=== PATIENT | male | born 1965 | race African-American/Black ===

== ENCOUNTER 2024-11-29 15:09 | Inpatient (IN) | payer OTHER, SELFPAY ==
[2024-11-29] VITALS (22 sets, daily range): BP systolic 135–182; BP diastolic 86–123; PULSE 47–74; RESP 16–28; TEMP 36.6; O2SAT 95–100; BMI 31.1
--- NOTE | ~2024-11-29 | XR_ITS ---
EXAMINATION: XR chest 2V Exam Date/Time: 11/29/2024 15:35 CDT HISTORY: back pain, sob Comparison: None. RESULT: Lines, tubes, and devices: None. Lungs and pleura: Clear. Cardiomediastinal silhouette: Stable. Other: No acute upper abdominal finding. Mild height loss at T8-T10 IMPRESSION: No acute cardiopulmonary process. Acute versus chronic mild height loss at T8-T10. Reviewed, dictated and finalized at location K.
--- NOTE | ~2024-11-29 | CT_ITS ---
History: Back pain PROCEDURE: CT thoracic spine without intravenous contrast. COMPARISON: Reference is made to CT examination of the chest dated 11/29/2024 as well as plain film kenyon luation of the chest performed the same day TECHNIQUE: Multiple contiguous axial images of the thoracic spine were performed without the administration of i ntravenous contrast. DLP: 1055 mGy-cm FINDINGS: Preservation of the normal curvature of the thoracic spine is identified. There are bridging endplate osteophytes at multiple levels in the thoracic spine (T5-T9), consistent with diffuse idiopathic skeletal hyperostosis (DISH). Diffuse mild anterior wedge compression of the T5, T6, T7, T8 and T9 vertebral bodies are identified. This type of diffuse vertebral body height loss can be seen with osteoporosis/decreased bone density as well as sequelae of diffuse idiopathic skeletal hyperostosis. Both T4 and T11 demonstrate normal vertebral body height. At the level of C7/T1: A central disc protrusion is identified with mass effect on the spinal canal a nd bilateral neural foramen. The anterior to posterior canal measures 9.3 mm in anterior to posterior dimension at this level. At the level of T1/T2: No significant disc protrusion is identified. At the level of T2/T3: No significant disc protrusion is identified. At the level of T3/T4: No significant disc protrusion is identified. At the level of T4/T5: No significant disc protrusion is identified. At the level of T5/T6: No significant disc protrusion is identified. At the level of T6/T7: No significant disc protrusion is identified. At the level of T7/T8: No significant disc protrusion is identified. At the level of T8/T9: No significant disc protrusion is identified. At the level of T9/T10: No significant disc protrusion is identified. At the level of T11/T12: No significant disc protrusion is identified. At the level of T12/L1: No significant disc protrusion is identified. At the level of T10/T11, is a large right renal cyst measuring 5.3 x 5 cm, which in rare cases may ca use back pain. Right-sided pleural thickening with adjacent compressive atelectasis is noted within the right lung b ase (anterior and lateral to the vertebral body of T8), an interval change from CT examination dated 11/29/2024. No additional soft tissue abnormality is noted. Impression: Central disc protrusion at the level of C7/T1, narrowing the spinal canal. Diffuse idiopathic skeletal hyperostosis at the levels of T5-T9. Mild anterior wedge compression of the T5-T9 vertebral bodies (grade 1) which may be seen with osteop orosis. Large right renal cyst anterior to the level of T10/T11. Right-sided pleural thickening with adjacent compressive atelectasis within the right lung base, an i nterval change from previous examination performed 11/29/2024 Reviewed, dictated and finalized at location A. Impression: Central disc protrusion at the level of C7/T1, narrowing the spinal canal. Diffuse idiopathic skeletal hyperostosis at the levels of T5-T9. Mild anterior wedge compression of the T5-T9 vertebral bodies (grade 1) which m ay be seen with osteoporosis. Large right renal cyst anterior to the level of T10/T11. Right-sided pleural thickening with adjacent compressive atelectasis within the right lung base, an interval change from previous examination performed 11/30/19 25
--- NOTE | ~2024-11-29 | MR_ITS ---
MRI of the thoracic spine Clinical History: Pain Technique: Axial T2-weighted and gradient images, and sagittal T1-weighted, T2-weighted, and STIR nina ges were acquired. Following intravenous administration of 20 cc MultiHance gadolinium, T1-weighted fat-sat imaging was performed in the axial and sagittal planes. Findings: There is no acute fracture or subluxation of the thoracic spine. Probable minimal chronic l oss of height at T7, T8, and T9. There is mild degenerative disc narrowing from T7 through T10. No ac jude bone marrow signal reality seen. No significant disc bulge or herniation seen at any thoracic level. No spinal canal stenosis or cord compression identified. Neural foramina are preserved throughout the thoracic spine. No abnormal signal seen in the spinal cord. Paravertebral soft tissues are unremarkable. No abnormal postcontrast enhancement identified. Impression: Minimal degenerative change in the mid thoracic spine. Probable minimal chronic loss of height at T7, T8, and T9. Reviewed, dictated and finalized at [facility]. Impression: Minimal degenerative change in the mid thoracic spine. Probable minimal chronic loss of height at T7, T8, and T9.
--- NOTE | ~2024-11-29 | CT_ITS ---
EXAMINATION: CTA chest PE protocol DATE: 11/29/2024 18:35 INDICATION: Pleuritic chest pain evaluate for PE TECHNIQUE: Computed tomography angiography (CTA) of the chest was performed with 100 mL Omnipaque-350 intravenous contrast timed to evaluate the pulmonary arteries. Coronal maximum intensity projection 3D-reconstructions were created by the technologist. The dose-length product (DLP) was 512.21 mGy-cm. Automated exposure control and iterative reconstruction technique were employed. COMPARISON: X-ray chest, same date. FINDINGS: Lung parenchyma and airways: Clear. Pleura: Unremarkable. Thoracic inlet, axillae and chest wall: Unremarkable. Thoracic aorta: No significant dilation. No dissection. Mediastinum: Normal. Heart and pericardium: Normal. Coronary artery calcifications: Absent. Upper abdomen: No significant finding. Bones: No acute osseous finding. Chronic appearing mild height loss at T7-T9. Pulmonary arteries: Study quality: Adequate. No pulmonary emboli detected. IMPRESSION: No CT evidence of acute pulmonary embolus. No acute process detected in the chest. Reviewed, dictated and finalized at location K.
--- NOTE | ~2024-11-29 | MR_ITS ---
MRI of the lumbar spine Clinical History: Pain Technique: Axial T2-weighted images, and sagittal T1-weighted, T2-weighted, and T2 fat-sat images wer e acquired. Following intravenous administration of 20 cc MultiHance gadolinium, T1-weighted fat-sat imaging was performed in the axial and sagittal planes. Findings: There is no fracture or subluxation of the lumbar spine. Vertebral bodies maintain normal h eight and line. No bone marrow signal abnormality seen. At L1-L2 and L2-L3 and L3-L4, there is no significant disc bulge or herniation. There are minimal fac et joint degenerative changes at these levels. No spinal canal stenosis or neural foraminal narrowing at these levels. At L4-L5, there is minimal disc bulge and mild facet arthropathy. No central canal stenosis or neural foraminal narrowing. At L5-S1, there is minimal disc bulge with advanced facet arthropathy. No spinal canal stenosis. Ther e is moderate to advanced bilateral neural foraminal narrowing. Paravertebral soft tissues are unremarkable. No abnormal postcontrast enhancement identified. Impression: Moderate to advanced bilateral neural foramina narrowing at L5-S1. Reviewed, dictated and finalized at location . Impression: Moderate to advanced bilateral neural foramina narrowing at L5-S1.
--- NOTE | ~2024-11-29 | MR_ITS ---
MRI of the cervical spine Clinical History: Pain Technique: Axial T2-weighted and gradient images, and sagittal T1-weighted, T2-weighted, and STIR nina ges were acquired. Following intravenous administration of 20 cc MultiHance gadolinium, T1-weighted f at-sat imaging was performed in the axial and sagittal planes. Findings: There is no fracture or subluxation of the cervical spine. Vertebral bodies maintain normal height and alignment. No bone marrow signal abnormality seen. No significant disc bulge or herniation seen at any cervical level. No spinal canal stenosis, cord co mpression, or neural foraminal narrowing and cervical spine. At C7-T1, there is diffuse disc osteophy te complex, especially at the right foraminal region with bilateral neural foraminal narrowing at thi s level. No abnormal signal seen in the spinal cord. Paravertebral soft tissues are unremarkable. No abnormal postcontrast enhancement seen. Impression: Moderate to advanced degenerative spondylitic changes at C7-T1, with extensive disc osteophyte comple x and bilateral neural foraminal narrowing. Renal cervical spine is essentially unremarkable. Reviewed, dictated and finalized at [facility]. Impression: Moderate to advanced degenerative spondylitic changes at C7-T1, with extensive disc osteophyte complex and bilateral neural foraminal narrowing. Renal cervical spine is essentially unremarkable.
--- OUTSIDE RECORDS SUMMARY | 2024-11-29 15:11 | XMS_ITS | Clinical Summary ---
Author Organization [facility] Address [address] [place] [address] Care Team Providers Care Preventive Medicine Specialist Name Role Phone Theodore Ott Primary Care Provider [phone] Source Comments [facility],non-owned Affiliates and Associated Physician Practices is amultiple site organization consisting of ambulatory clinics and hospital sitesin [place], [place], [place] and [place]. This disclosure is being madepursuant to the Care Everywhere program and may not contain all information available regarding this patient. 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 Gender Identity Not on file Sexual Orientation Not on file Plan of Treatment Health Maintenance Due Date Last Done Comments COLOGUARD (AGES 45-75) - COL ON CA SCREENING 1967 COLON MONITORING 1967 COLONOSCOPY - COLON CA SCREENING 1967 CT COLONOGRAPHY - COLON CA SCREENING 1967 Colorectal Cancer Screening 1967 FIT - COLON CA SCREENING 1967 FLEX SIG - COLON CA SCREENING 1967 LIPID TESTING 1967 HIV SCREENING 12/03/1982 HEPATITIS C SCREENING 11/29/1985 DTAP/TDAP/TD VACCINES (1 - Tdap) 12/03/1986 HEPATITIS B VACCINE (1 of 3 - 19+ 3-dose series) 12/03/1986 PNEUMOCOCCAL VACCINE 50+ (1 of 1 - PCV) 12/03/2017 ZOSTER VACCINE (1 of 2) 12/03/2017 COVID-19 VACCINE (1 - 2024-2 5 season) 2024 DEPRESSION SCREENING 05/28/2024 INFLUENZA VACCINE Completed 02/12/2024 HIB VACCINE Aged Out No longer eligi ble based on patient's age to complete this topic HPV VACCINE Aged Out No longer eligi ble based on patient's age to complete this topic MENINGOCOCCAL (Group B) VACC INE SHARED DECISION-MAKING Aged Out No longer eligibl e based on patient's age to complete this topic MENINGOCOCCAL GROUPS A/C/Y/W VACCINE Aged Out No longer eligible b ased on patient's age to complete this topic Insurance [employer] [facility] [employer] Care Teams Preventive Medicine Specialist Relationship Specialty Start Date End Date Theodore Ott [address] [place] [phone] PCP - General Family Medicine 02/21/24
--- OUTSIDE RECORDS SUMMARY | 2024-11-29 15:11 | XMS_ITS | Referral Summary ---
Author Organization [facility] Address [address] [place] [id number] Care Team Providers Care Helminthology Teacher Name Role Phone Theodore Ott MD Primary Care Provider [phone] Allergies No known active allergies Medications amLODIPine (NORVASC) 10 mg tablet Take 10 mg by mouth daily 0 Active atorvastatin (LIPITOR) 10 mg tablet Take 10 mg by mouth daily 0 Active metFORMIN XR (GLUCOPHAGE XR) 500 mg 24 hr tablet Take 500 mg by mouth daily 0 Active sildenafiL (VIAGRA) 100 mg tablet daily Active naproxen sodium 220 mg capsule Take by mouth A ctive mozqp-7-zwk-epa -dpa-fish oil 1,050-1,200 mg capsule 1 capsule Active cyanocobalamin (Vitamin B-12) 1,000 mcg tabletIndicatio ns:Prevention of Vitamin B12 Deficiency Take 1,000 mcg by mouth daily Active atorvastatin (LIPITOR) 40 mg tablet Take 40 mg by mouth daily 2 Active triamcinolone (KENALOG) 0.5 % cream APPLY CREAM TOPICALLY TWICE DAILY ON BILATERAL POSTERIOR WRISTS 2 Active montelukast (SINGULAIR) 10 mg tablet Take 10 mg by mouth daily for 30 days 2 Active losartan (COZAAR) 100 mg tablet Take 100 mg by mouth daily for 90 days 2 Active cetirizine (ZyrTEC) 10 mg tablet Take 10 mg by mouth daily for 30 days Active hydrALAZINE (APRESOLINE) 50 mg tablet hydralazine 50 mg tablet Active Active Problems Problem Noted Date Diagnosed Date Obstructive sleep apnea 11/22/2021 Insufficient sleep syndrome 09/19/2021 Hypersomnia 09/19/2021 Essential hypertension 09/19/2021 BMI 30.0-30.9,adult 09/19/2021 Psychophysiological insomnia 09/19/2021 Anxiety 09/19/2021 Nonsmoker 09/19/2021 Trigger ring finger of left hand 06/20/2019 Immunizations Immunization Administration Dates Next Due Tdap 01/16/2024 Social History Tobacco Use Types Packs/Day Years Used Date Smoking Tobacco: Never Smokeless Tobacco: Never Alcohol Use Standard Drinks/Week Comments Yes 0 (1 standard drink = 0.6 oz pur e alcohol) social AUDIT-C Answer Date Recorded Q1: How often do you have a drink containing alc ohol? Monthly or less 09/19/2021 Q2: How many drinks containi ng alcohol do you have on a typical day when you are drinking? 1 or 2 09/19/2021 Frequency of Binge Drinking Not on file 08/27 Personal Safety Answer Date Recorded Have you ever been in or are you currently in a harmful physical or emotional relationship or is someone making you feel afraid or unsafe? 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 Gender Identity Not on file Sexual Orientation Not on file Last Filed Vital Signs Vital Sign Reading Time Taken Comments Blood Pressure 138/80 01/16/2024 4:00 PM CDT Pulse 56 01/16/2024 4:00 PM CDT Temperature 36.9 C (98.4 F) 01/16/2024 1:07 PM CDT Respiratory Rate 17 01/16/2024 4:00 PM CDT Oxygen Saturation 97% 01/16/2024 4:00 PM CDT Inhaled Oxygen Concentration - - Weight 95.3 kg (210 lb) 01/16/2024 1:07 PM CDT Height 180.3 cm (5' 11) 01/16/2024 1:07 PM CDT Body Mass Index 29.29 01/16/2024 1:07 PM CDT Plan of Treatment Not on file Insurance ANTHEM ACCESS CHOICE ANTHEM ACCESS CHOICE [address] [address] EMPLOYERS [employer] ACCESS CHOICE Care Teams Helminthology Teacher Relationship Specialty Start Date End Date Theodore Ott MD [address] [place] [phone] PCP - General Family Medicine 06/03/19
--- OUTSIDE RECORDS SUMMARY | 2024-11-29 15:11 | XMS_ITS | Clinical Summary ---
Author Organization [facility] Address [address] [place] [phone] Care Team Providers Care Carbide Grinder Name Role Phone Theodore Ott MD Primary Care Provider [phone] Allergies No known active allergies Medications amLODIPine [...] mg capsule Take by mouth A ctive mlipk-4-lsm-epa -dpa-fish oil 1,050-1,200 mg capsule 1 capsule [...] Immunization Administration Dates Next Due Tdap 01/16/2024 Medical History Medical History Date Comments Diabetes mellitus (HCC) Hypercholesteremia Hypertension Social History Tobacco Use Types Packs/Day Years [...] on file 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 Gender Identity Not on file Sexual Orientation Not on file Obstetrics History Last Filed Vital Signs Vital Sign Reading [...] 01/16/2024 1:07 PM CDT Plan of Treatment Health Maintenance Due Date Last Done Comments Colon Cancer Screening-Colonoscopy 1967 Depression Screening 1967 Hepatitis C Screening 1967 Prostate Cancer Screening-PSA 1967 Hepatitis B Screening 12/03/1985 Regular Well Visit/Exam 18-64 12/03/1985 Zoster Vaccine (1 of 2) 12/03/2017 Covid-19 Vaccine (3 - 2023-2 5 season) 2024 10/01/2020, 09/07/2020 Influenza Vaccine (#1) 2025 DTaP/Tdap/Td Vaccine (2 - Td or Tdap) 01/15/2034 01/16/2024 Pneumococcal vaccine <65 Aged Out No longer eligible based on patient's age to complete this topic Insurance [employer] [facility] ACCESS CHOICE Care Teams Carbide Grinder Relationship Specialty Start Date End Date Theodore Ott MD [address] [place] [phone] PCP - General Family Medicine 06/03/19
--- OUTSIDE RECORDS SUMMARY | 2024-11-29 15:11 | XMS_ITS | Data Portability ---
[facility] [address] [place] [address] Care Team Providers Care Pattern Clerk Name Role Phone THEODORE OTT Primary Care Provider Assessment No assessment recorded. Plan of Treatment Reminders Order Date Submit Date Provider Last Modified By Organization Details Last Modified Time Details Appointments ANY 15 2024 03:30P Sirena Ott MD Not available Not available Not available Lab glucos e, finger stick, blood 2024 025 In-Office Order, Internal Use Only DO Not Attach Compendium DO Not Attach Compendium, Do Not Delete/merge, [id number] 08/12/2024 15:31:13 glucos e, finger stick, blood 2023 024 In-Office Order, Internal Use Only DO Not Attach Compendium DO Not Attach Compendium, Do Not Delete/merge, [id number] 05/13/2024 18:03:41 HbA1c (hemog lobin A1c), blood 2023 024 In-Office Order, Internal Use Only DO Not Attach Compendium DO Not Attach Compendium, Do Not Delete/merge, [id number] 05/13/2024 18:03:41 glucos e, finger stick, blood 2023 024 In-Office Order, Internal Use Only DO Not Attach Compendium DO Not Attach Compendium, Do Not Delete/merge, [id number] 02/12/2024 17:23:09 HbA1c (hemog lobin A1c), blood 2023 024 In-Office Order, Internal Use Only DO Not Attach Compendium DO Not Attach Compendium, Do Not Delete/merge, 02/12/2024 17:23:10 glucos e, finger stick, blood 2023 024 In-Office Order, Internal Use Only DO Not Attach Compendium DO Not Attach Compendium, Do Not Delete/merge, 01/14/2024 17:34:16 noninv asive colore ctal cancer DNA + occult blood screen ing, QL, stool 2023 024 [facility] (Cologuard Orders Only), [address], [address], [place], [address], 10/29/2023 17:54:00 glucos e, finger stick, blood 2023 024 In-Office Order, Internal Use Only DO Not Attach Compendium DO Not Attach Compendium, Do Not Delete/merge, 10/11/2023 16:56:32 HbA1c (hemog lobin A1c), blood 2023 024 In-Office Order, Internal Use Only DO Not Attach Compendium DO Not Attach Compendium, Do Not Delete/merge, 10/11/2023 16:56:31 CMP, serum or plasma 2023 024 [facility], [address] [place], [place] [address]kaden Moran, [address], [place], [address], 10/25/2023 01:41:14 lipid panel, serum 2023 024 [facility], [address] [place], [place] [address]kaden Moran, [address], [place], [address], 10/25/2023 01:41:13 unlist ed lab - TSH reflex to t4f 2023 024 [facility], [address] [facility], [address], [place], [address], 11/01/2023 09:45:32 CBC w/ auto diff 2023 024 [facility], [address] [facility], [address], [place], [address], 10/25/2023 01:41:15 vitami n D, 25-hyd violet, total, serum 2023 024 [facility], [address] [facility], [address], [place], [address], 10/25/2023 01:41:17 Referral podiat rist referr al 2023 024 [facility], [address], [place], [address], 11/23/2023 16:44:03 ophtha lmolog ist referr al 2023 024 [facility], [address], [place], [address], 09/19/2024 16:16:03 Procedures None record ed. Surgeries None record ed. Imaging None record ed. Medication Orders silden afil 100 mg tablet 2024 025 [facility], [address], [id number], 08/12/2024 15:41:34 losart an 100 mg tablet 2024 025 [facility], [address] [place], [address], 08/12/2024 15:31:23 terazo sin 5 mg capsul e 2024 025 [facility], [address] [place], [address], 08/12/2024 15:31:25 clobet asol 0.05 % shampo o 2023 024 [facility], [address] [place], [address], 05/13/2024 18:03:46 kendra ukast 10 mg tablet 2023 024 [facility], [address] [place] [address], [id number], 01/14/2024 17:34:23 cetiri zine 10 mg tablet 2023 024 [facility], [address] [place] [address], [id number], 01/14/2024 17:34:24 atorva statin 40 mg tablet 2023 024 [facility], [address] [place] [address], [id number], 01/14/2024 17:34:23 silden afil 100 mg tablet 2023 024 [facility], [facility], [address], [id number], 01/14/2024 17:41:33 Vitami n D2 1,250 mcg (50,00 0 unit) capsul e 2023 024 [facility], [address] [place] [address], [id number], 01/14/2024 17:37:51 seleni um sulfid e 2.5 % lotion 2023 024 [facility], [address] [place] [address], [id number], 01/14/2024 17:34:23 kendra ukast 10 mg tablet 2023 024 [facility], [address] [place] [address], [id number], 10/11/2023 16:56:36 cetiri zine 10 mg tablet 2023 024 [facility], [address] [place] [address], [address], 10/11/2023 16:56:41 atorva statin 40 mg tablet 2023 024 [facility], [address] [place] [address], [id number], 10/11/2023 16:56:37 seleni um sulfid e 2.5 % lotion 2023 024 [facility], [address] [place] [address], [id number], 10/11/2023 16:56:39 metfor min ER 500 mg tablet ,exten ded releas e 24 hr 2023 024 [facility], [address] [place] [address], [id number], 10/11/2023 16:56:39 losart an 100 mg tablet 2023 024 [facility], [address] [place] [address], [address], 10/11/2023 16:56:39 hydral azine 100 mg tablet 2023 024 [facility], [address] [place] [address], [id number], 10/11/2023 16:56:37 silden afil 100 mg tablet 2023 024 [facility], [address] [place] [address], [id number], 10/11/2023 17:05:46 Patient TargetsNo targets recorded. Patient Instructions Encounter Date Encounter Id Patient Instructions Last Modified By Organization Details Last Modified Time 10/11/2023 [id number] allergies: care instructions Not available 10/11/2023 16:56:28 managing your allergies: care instructions Not available 10/11/2023 16:56:28 A healthy lifestyle: care instructions Not available 10/11/2023 16:56:28 high cholesterol : care instructions Not available 10/11/2023 16:56:28 seborrheic dermatitis: care instructions Not available 10/11/2023 16:56:28 type 2 diabetes: care instructions Not available 10/11/2023 16:56:28 learning about type 2 diabetes Not available 10/11/2023 16:56:28 learning about high blood pressure Not available 10/11/2023 16:56:28 How To Lower Blood Pressure Not available 10/11/2023 16:56:28 Erection Problems: Care Instructions Not available 10/11/2023 16:56:28 01/14/2024 [id number] allergies: care instructions Not available 01/14/2024 17:34:13 high cholesterol : care instructions Not available 01/14/2024 17:34:13 A healthy lifestyle: care instructions Not available 01/14/2024 17:34:13 seborrheic dermatitis: care instructions Not available 01/14/2024 17:34:13 learning about high blood pressure Not available 01/14/2024 17:34:13 type 2 diabetes: care instructions Not available 01/14/2024 17:34:13 02/12/2024 [id number] influenza (flu) vaccine: care instructions Not available 02/12/2024 17:23:08 A healthy lifestyle: care instructions Not available 02/12/2024 17:23:08 learning about high blood pressure Not available 02/12/2024 17:23:08 type 2 diabetes: care instructions Not available 02/12/2024 17:23:08 high cholesterol : care instructions Not available 02/12/2024 17:23:08 05/13/2024 [id number] A healthy lifestyle: care instructions Not available 05/13/2024 18:03:41 seborrheic dermatitis: care instructions Not available 05/13/2024 18:03:41 learning about high blood pressure Not available 05/13/2024 18:03:41 type 2 diabetes: care instructions Not available 05/13/2024 18:03:41 high cholesterol : care instructions Not available 05/13/2024 18:03:41 08/12/2024 [id number] advance care planning: care instructions Not available 08/12/2024 15:31:13 preventing falls : care instructions Not available 08/12/2024 15:31:13 Quitting Tobacco : Care Instructions Not available 08/12/2024 15:31:13 Medicare Wellnes s Preventive Checklist Not available 08/12/2024 15:31:13 eating healthy foods: care instructions Not available 08/12/2024 15:31:13 AD8 Dementia Screening Interview Not available 08/12/2024 15:31:13 high cholesterol : care instructions Not available 08/12/2024 15:31:14 A healthy lifestyle: care instructions Not available 08/12/2024 15:31:13 seborrheic dermatitis: care instructions Not available 08/12/2024 15:31:13 learning about high blood pressure Not available 08/12/2024 15:31:14 type 2 diabetes: care instructions Not available 08/12/2024 15:31:13 Reason for Referral Mobile Ui Developer Referral for Type 2 diabetes mellitus without complication Referring Physician: Theodore [facility], Encounter Date: 10/11/2023 Insulation Sprayer Referral for Type 2 diabetes mellitus without complication Referring Physician: Theodore Ott [facility], Encounter Date: 10/11/2023 Results Created Date Observation Date Name Description Value Unit Range Abnormal Flag Note LastModifiedBy Organization Detail LastModifiedTime 10/11/19 24 10/11/2023 HbA1c (hemo globi n A1c), blood HbA1c 6.4 Not Available In-Office Order Internal Use Only DO Not Attach Compendium DO Not Attach Compendium, Do Not Delete/merge, [id number] 10/11/2023 16:56:07 10/11/19 24 10/11/2023 glucheather neff se k, blood Blood Glucose: mg/dl 135 Not Available In-Off ice Order Internal Use Only DO Not Attach Compendium DO Not Attach Compendium, Do Not Delete/merge, [id number] 10/11/2023 16:32:45 10/19/19 24 10/19/2023 COLOG UARD cologuard result reportable NEGATI VE negati ve normal NEGAT MELIDA TEST RESUL T. A negat melida Colog uard resul t indic ates a low likel ihood that a color ectal cance r (CRC) or advan matt adeno ma (sahra omato us polyp s with more advan matt pre-m align ant featu res) is prese nt. The [facility] e that a perso n with a negat melida Colog uard test has a color ectal cance r is less than 1 in 1500 (nega tive predi ctive value >99.9 %) or has an advan matt adeno ma is less than 5.3% (nega tive predi ctive value 94.7% ). These data are based on a prosp ectiv e cross -sect ional study of 10,00 0 indiv idual s at [place] ge risk for color ectal cance r who were scree flaco with both Colog uard and colon oscop y. (Ghassan Gutierrez et al, N Engl J Med 2014; 370(1 4):12 86-12 97) The clifford l value (refe rence range ) for this assay is negat melida. COLOG UARD RE-SC REENI NG RECOM MENDA TION: Perio dic color ectal cance r scree camila is an impor tant part of preve ntive healt hcare for asymp tomat ic indiv idual s at [facility] risk for color ectal cance r. Follo wing a negat melida Colog uard resul t, the Ameri can Cance r Socie ty and U.S. Multi -Soci ety Task Force scree camila guide lines recom mend a Colog uard re-sc hernandez estes inter laurie of 3 years . Refer ences : Ameri can Cance r Socie ty Guide line for Color ectal Cance r Scree camila: https ://ww w.can cer.o rg/ca ncer/ colon -rect al-ca ncer/ detec tion- diagn osis- stagi ng/ac s-rec ommen datio ns.ht ml.; Abdi MCCLOUD, Vlad balderas CR, Farhad IsabelK, Color ectal Cance r Scree camila: Recom menda tions for Physi cians and Patie nts from the U.S. Multi -Soci ety Task Force on Color ectal Cance r Scree camila , Am Chalo bonilla y 2017; 112:1 016-1 030. TEST DESCR IPTIO N: Gravity site algor ithmi c be sis of stool DNA-b iovishal stevens with hemog lobin immun oassa y. Quant itati ve value s of indiv idual bioma rkers are not repor table and are not assoc iated with indiv idual bioma rker resul t refer ence range s. Colog uard is inten ded for color ectal cance r scree camila of adult s of eithe r sex, 45 years or older , who are at [facility] for color ectal cance r (CRC) . Colog uard has been appro praful for use by the U.S. FDA. The perfo rmanc e of Colog uard was estab lishe d in a cross secti onal study of [facility] adult s aged 50-84 . Colog uard perfo rmanc e in patie nts ages 45 to 49 years was estim ated by sub-g roup be sis of near- age group s. Colon oscop ies perfo rmed for a posit melida resul t may find as the most clini angelo signi fican t lesio n: color ectal cance r [4.0% ], advan matt adeno ma (incl uding sessi le mina farheen polyp s great er than or equal to 1cm diame ter) [20%] or non- advan matt adeno ma [31%] ; or no color ectal neopl john [45%] . These estim ates are deriv ed from a prosp ectiv e cross -sect ional tae jensen study of 0 indiv idual s at [facility] risk for color ectal cance r who were scree flaco with both Colog uard and colon oscop y. (Ghassan Shook al, N Engl J Med 2014; 370(1 4):12 86-12 97.) Colog uard may produ ce a false negat melida or false posit melida resul t (no color ectal cance r or preca ncero us polyp prese nt at colon oscop y follo w up). A negat melida Colog uard test resul t does not guara ntee the absen ce of CRC or advan matt adeno ma (pre- cance r). The curre nt Colog uard scree camila inter laurie is every 3 years . (Amer ican Cance r Socie ty and U.S. Multi -Soci ety Task Force ). Colog uard perfo rmanc e data in a 0 patie nt pivot al study using colon oscop y as the refer ence metho d can be acces sed [facility] locat ion: www.e xactl abs.c om/re sulhilaria . Addit ional descr iptio n of the Colog uard test proce ss, warni ngs and preca ution s can be found at www.c sarahogu indra.c om. Not Available [facility] (Cologuard Orders Only) [address], [place], [address], 10/29/2023 17:54:00 10/24/1910/25/2023 LIPID PANEL , STAND INDRA cholesterol, total 118 mg/dL <200 normal Not Available [facility] [address], [place], [address], 10/25/2023 01:59:53 10/24/1910/25/2023 LIPID PANEL , STAND INDRA HDL cholesterol 38 mg/dL > or = 40 low Not Available [facility] [address] [address] [place], [address], 10/25/2023 01:59:53 10/24/1910/25/2023 LIPID PANEL , STAND INDRA triglyceride s 97 mg/dL <150 normal Not Available [facility] [address], [address], 10/25/2023 01:59:53 10/24/19 24 10/25/2023 LIPID PANEL , STAND INDRA LDL-choleste rol 62 mg/dL _(lauren c) normal Refer ence range : <100 Manny able range <100 mg/dL for prima ry preve ntion ; <70 mg/dL for patie nts with CHD or diabe tic patie nts with > or = 2 CHD risk facto rs. LDL-C is now calcu lated using the Odalys raza-Hop kins calcu david n, which is a valid ated novel metho d provi ding josephine r accur acy than the Fried dori equat ion in the estim ation of LDL-C . Odalys raza SS et al. MARICRUZ. 2013; 310(1 9): 2061- 2068 (http ://ed ucati on.Qu Bg [employer]. com/f aq/FA Q164) Not Available [facility] [address] [address] [place], [address], 10/25/2023 01:59:53 10/24/19 24 10/25/2023 LIPID PANEL , STAND INDRA chol/HDLC ratio 3.1 (calc ) <5.0 normal Not Available [facility] [address], [address], 10/25/2023 01:59:53 10/24/19 24 10/25/2023 LIPID PANEL , STAND INDRA non HDL cholesterol 80 mg/dL _(lauren c) <130 normal For patie nts with diabe lakisha plus 1 major ASCVD risk facto r, treat ing to a non-H DL-C goal of <100 mg/dL (LDL- C of <70 mg/dL ) is cristina estrellao n. Not Available [address], [address], 10/25/2023 01:59:53 10/24/19 24 10/25/2023 COMPR EHENS MELIDA METAB OLIC PANEL glucose 97 mg/dL 65-139 normal Non-f astin g refer ence inter laurie Not Available [address], [address], 10/25/2023 01:59:54 10/24/19 24 10/25/2023 COMPR EHENS MELIDA METAB OLIC PANEL urea nitrogen (BUN) 12 mg/dL 7-25 normal Not Available [address], [address], 10/25/2023 01:59:54 10/24/19 24 10/25/2023 COMPR EHENS MELIDA METAB OLIC PANEL creatinine 0.96 mg/dL 0.70-1 .30 normal Not Available [address], [address], 10/25/2023 01:59:54 10/24/19 24 10/25/2023 COMPR EHENS MELIDA METAB OLIC PANEL eGFR 93 mL/mi n/1.7 3m2 > or = 60 normal Not Available [address], [address], 10/25/2023 01:59:54 10/24/19 24 10/25/2023 COMPR EHENS MELIDA METAB OLIC PANEL BUN/creatini ne ratio SEE NOTE: (calc ) 6-22 Not Repor farheen: BUN and Creat inine are withi n refer ence range . Not Available [address], [address], 10/25/2023 01:59:54 10/24/19 24 10/25/2023 COMPR EHENS MELIDA METAB OLIC PANEL sodium 139 mmol/ L 135-14 6 normal Not Available [address], [address], 10/25/2023 01:59:54 10/24/19 24 10/25/2023 COMPR EHENS MELIDA METAB OLIC PANEL potassium 4.0 mmol/ L 3.5-5. 3 normal Not Available [address], [address], 10/25/2023 01:59:54 10/24/19 24 10/25/2023 COMPR EHENS MELIDA METAB OLIC PANEL chloride 104 mmol/ L 98-110 normal Not Available [address], [address], 10/25/2023 01:59:54 10/24/19 24 10/25/2023 COMPR EHENS MELIDA METAB OLIC PANEL carbon dioxide 29 mmol/ L 20-32 normal Not Available [address], [address], 10/25/2023 01:59:54 10/24/19 24 10/25/2023 COMPR EHENS MELIDA METAB OLIC PANEL calcium 8.9 mg/dL 8.6-10 .3 normal Not Available [address], [address], 10/25/2023 01:59:54 10/24/19 24 10/25/2023 COMPR EHENS MELIDA METAB OLIC PANEL protein, total 7.0 g/dL 6.1-8. 1 normal Not Available [address], [address], 10/25/2023 01:59:54 10/24/19 24 10/25/2023 COMPR EHENS MELIDA METAB OLIC PANEL albumin 4.2 g/dL 3.6-5. 1 normal Not Available [address] [place], [address], 10/25/2023 01:59:54 10/24/19 24 10/25/2023 COMPR EHENS MELIDA METAB OLIC PANEL globulin 2.8 g/dL_ (calc ) 1.9-3. 7 normal Not Available [address], [address], 10/25/2023 01:59:54 10/24/19 24 10/25/2023 COMPR EHENS MELIDA METAB OLIC PANEL albumin/glob ulin ratio 1.5 (calc ) 1.0-2. 5 normal Not Available [address], [address], 10/25/2023 01:59:54 10/24/19 24 10/25/2023 COMPR EHENS MELIDA METAB OLIC PANEL bilirubin, total 0.7 mg/dL 0.2-1. 2 normal Not Available [address], [address], 10/25/2023 01:59:54 10/24/19 24 10/25/2023 COMPR EHENS MELIDA METAB OLIC PANEL alkaline phosphatase 63 U/L 35-144 normal Not Available [address], [address], 10/25/2023 01:59:54 10/24/19 24 10/25/2023 COMPR EHENS MELIDA METAB OLIC PANEL AST 18 U/L 10-35 normal Not Available [address], [address], 10/25/2023 01:59:54 10/24/19 24 10/25/2023 COMPR EHENS MELIDA METAB OLIC PANEL ALT 17 U/L 9-46 normal Not Available [address], [address], 10/25/2023 01:59:54 10/24/19 24 10/25/2023 CBC (INCL UDES DIFF/ PLT) white blood cell count 4.9 thous and/u L 3.8-10 .8 normal Not Available [address], [address], 10/25/2023 01:41:15 10/24/19 24 10/25/2023 CBC (INCL UDES DIFF/ PLT) red blood cell count 4.46 krystin on/uL 4.20-5 .80 normal Not Available [address], [address], 10/25/2023 01:41:15 10/24/19 24 10/25/2023 CBC (INCL UDES DIFF/ PLT) hemoglobin 13.7 g/dL 13.2-1 7.1 normal Not Available [address], [address], 10/25/2023 01:41:15 10/24/19 24 10/25/2023 CBC (INCL UDES DIFF/ PLT) hematocrit 41.8 % 38.5-5 0.0 normal Not Available [address], [address], 10/25/2023 01:41:15 10/24/19 24 10/25/2023 CBC (INCL UDES DIFF/ PLT) MCV 93.7 fL 80.0-1 00.0 normal Not Available [address], [address], 10/25/2023 01:41:15 10/24/19 24 10/25/2023 CBC (INCL UDES DIFF/ PLT) MCH 30.7 pg 27.0-3 3.0 normal Not Available [address], [address], 10/25/2023 01:41:15 10/24/19 24 10/25/2023 CBC (INCL UDES DIFF/ PLT) MCHC 32.8 g/dL 32.0-3 6.0 normal Not Available [address], [address], 10/25/2023 01:41:15 10/24/19 24 10/25/2023 CBC (INCL UDES DIFF/ PLT) RDW 12.8 % 11.0-1 5.0 normal Not Available [address], [address], 10/25/2023 01:41:15 10/24/19 24 10/25/2023 CBC (INCL UDES DIFF/ PLT) platelet count 123 thous and/u L 140-40 0 low Not Available [address], [address], 10/25/2023 01:41:15 10/24/19 24 10/25/2023 CBC (INCL UDES DIFF/ PLT) MPV 12.8 fL 7.5-12 .5 high Not Available [address], [address], 10/25/2023 01:41:15 10/24/19 24 10/25/2023 CBC (INCL UDES DIFF/ PLT) absolute neutrophils 2548 cells /uL 1500-7 800 normal Not Available [address], [address], 10/25/2023 01:41:15 10/24/19 24 10/25/2023 CBC (INCL UDES DIFF/ PLT) absolute lymphocytes 1705 cells /uL 850-39 00 normal Not Available [address], [address], 10/25/2023 01:41:15 10/24/19 24 10/25/2023 CBC (INCL UDES DIFF/ PLT) absolute monocytes 608 cells /uL 200-95 0 normal Not Available [address], [address], 10/25/2023 01:41:15 10/24/19 24 10/25/2023 CBC (INCL UDES DIFF/ PLT) absolute eosinophils 20 cells /uL 15-500 normal Not Available [facility] [address], [address], 10/25/2023 01:41:15 10/24/19 24 10/25/2023 CBC (INCL UDES DIFF/ PLT) absolute basophils 20 cells /uL 0-200 normal Not Available [facility] [address], [address], 10/25/2023 01:41:15 10/24/19 24 10/25/2023 CBC (INCL UDES DIFF/ PLT) neutrophils 52 % normal Not Available [facility] [address], [address], 10/25/2023 01:41:15 10/24/19 24 10/25/2023 CBC (INCL UDES DIFF/ PLT) lymphocytes 34.8 % normal Not Available [facility] [address], [address], 10/25/2023 01:41:15 10/24/19 24 10/25/2023 CBC (INCL UDES DIFF/ PLT) monocytes 12.4 % normal Not Available [facility] [address], [address], 10/25/2023 01:41:15 10/24/19 24 10/25/2023 CBC (INCL UDES DIFF/ PLT) eosinophils 0.4 % normal Not Available [facility] [address], [address], 10/25/2023 01:41:15 10/24/19 24 10/25/2023 CBC (INCL UDES DIFF/ PLT) basophils 0.4 % normal Not Available [facility] [address], [address], 10/25/2023 01:41:15 10/24/19 24 10/25/2023 TSH W/REF GIOVANY TO FT4 TSH w/reflex to FT4 2.39 mIU/L 0.40-4 .50 normal Not Available [facility] [address] [place], [address], 10/25/2023 08:08:08 10/24/19 24 10/25/2023 VITAM IN D,25- OH,TO BREANA,I A vitamin D,25-oh,tota l,ia 25 NG/mL 30-100 low Vitam in D Statu s 25-OH Vitam in D: Defic iency : <20 ng/mL Insuf ficie ncy: 20 - 29 ng/mL Optim al: > or = 30 ng/mL For 25-OH Vitam in D testi ng on patie nts on D2-mcconnell pplem entat ion and patie nts for whom quant itati on of D2 and D3 fract ions is requi red, the [facility](TM ) 25-OH VIT D, (D2,D 3), LC/MS /MS is recom mery d: order code 22679 (db ents >2yrs ). See Note 1 Note 1 For addit ional infor mauricio wong e refer to http: //pratibha bishop ics.c om/fa q/FAQ 199 (This link is being provi ded for infor cedrick sarah/ educaby coombs purpo ses only. ) Not Available [facility] [address] [place], [address], 10/25/2023 08:08:10 01/14/20 24 01/14/2024 gluco se, finge rstic k, blood Blood Glucose: mg/dl 121 Not Available In-Off ice Order Internal Use Only DO Not Attach Compendium DO Not Attach Compendium, Do Not Delete/merge, [id number] 01/14/2024 16:54:38 02/12/20 24 02/12/2024 HbA1c (hemo globi n A1c), blood HbA1c 6.5 Not Available In-Office Order Internal Use Only DO Not Attach Compendium DO Not Attach Compendium, Do Not Delete/merge, [id number] 02/12/2024 17:02:57 02/12/20 24 02/12/2024 gluco se, finge rstic k, blood Blood Glucose: mg/dl 97 Not Available In-Off ice Order Internal Use Only DO Not Attach Compendium DO Not Attach Compendium, Do Not Delete/merge, [id number] 02/12/2024 17:02:45 05/13/20 24 05/13/2024 HbA1c (hemo globi n A1c), blood HbA1c 6.5 Not Available In-Office Order Internal Use Only DO Not Attach Compendium DO Not Attach Compendium, Do Not Delete/merge, [id number] 05/13/2024 16:58:55 05/13/20 24 05/13/2024 gluco se, finge rstic k, blood Blood Glucose: mg/dl 151 Not Available In-Off ice Order Internal Use Only DO Not Attach Compendium DO Not Attach Compendium, Do Not Delete/merge, [facility] 05/13/2024 15:59:31 08/13/19 25 08/12/2024 gluco se, finge rstic k, blood Blood Glucose: mg/dl 172 Not Available In-Off ice Order Internal Use Only DO Not Attach Compendium DO Not Attach Compendium, Do Not Delete/merge, [facility] 08/12/2024 15:05:49 Result Notes None recorded. Problems Name Problem SNOMED Code Status Onset Date Resolution Date Notes Provider Name and Address Organization Details Recorded Time Essential hypertension 28453121 Active 2017 FELIPE Chang - [facility] 8 10:31:16 Impotence Active 2017 FELIPE Chang - [facility] 8 10:31:24 Type 2 diabetes mellitus without complication 031302287 Active 2021 ANA Dewey [place] - [facility] 2 14:02:59 Problem Notes None recorded. Medical Equipment None Reported. Allergies Allergen ID Allergen Name Allergen Category Reaction Reaction Severity Criticality Documentation Date Start Date Code Code System Note Provider Name and Address Organization Details Recorded Time [id number] amlodipin e medicatio n angioedem a moderate Not available 01/14/2024 67348 RxNorm Theodore Ott MD Attn: Hillary collins,[address] [facility], [place], [address], [facility] [place] [facility] - [facility] 17:30:26 Medications Name Sig Start Date Stop Date Status Note LastModified by Organization Details LastModified Time terazosin 5 mg capsule TAKE 1 CAPSULE BY MOUTH ONCE DAILY active Not Available Not Available No t Available atorvastatin 40 mg tablet Take 1 tablet every day by oral route for 90 days. 2023 active Not Available Not Available Not Avai lable triamcinolon e acetonide 0.5 % topical cream APPLY CREAM TOPICALLY TWICE DAILY ON BILATERAL POSTERIOR WRISTS active Not Available Not Available No t Available cetirizine 10 mg tablet TAKE 1 TABLET BY MOUTH ONCE DAILY active Not Available Not Available No t Available atorvastatin 10 mg tablet Take 1 tablet every day by oral route for 90 days. 2019 active Not Available Not Available Not Avai lable meloxicam 15 mg tablet active Not Available Not Available No t Available prednisone 20 mg tablet Take 60mg for three days, then 40mg for three days, then 20mg for three days. active Not Available Not Available No t Available acetaminophe n 300 mg-codeine 30 mg tablet active Not Available Not Available Not Available amlodipine 5 mg tablet Take 1 tablet every day by oral route for 90 days. active Not Available Not Available No t Available sildenafil 100 mg tablet TAKE 1 TABLET BY MOUTH 30-60 MINUTES PRIOR TO SEXUAL ACTIVITY. DO NOT TAKE MORE THAN 1 TABLET IN ANY 24-HOUR PERIOD. 2024 active Not Available Not Available Not Avai lable oxycodone-ac etaminophen 5 mg-325 mg tablet TAKE 1 TABLET BY MOUTH EVERY 4 TO 6 HOURS active Not Available Not Available No t Available amoxicillin 875 mg tablet Take 1 tablet every 12 hours by oral route as directed for 10 days. active Not Available Not Available No t Available amlodipine 10 mg tablet Take 1 tablet every day by oral route for 90 days. 2019 active Not Available Not Available Not Avai lable cephalexin 500 mg capsule TAKE 1 CAPSULE BY MOUTH 4 TIMES DAILY FOR 5 DAYS active Not Available Not Available N ot Available hydralazine 100 mg tablet Take 1 tablet twice a day by oral route for 90 days. 2023 active Not Available Not Available Not Avai lable montelukast 10 mg tablet TAKE 1 TABLET BY MOUTH ONCE DAILY active Not Available Not Available No t Available hydralazine 50 mg tablet Take 1 tablet twice a day by oral route for 30 days. active Not Available Not Available No t Available ergocalcifer ol (vitamin D2) 1,250 mcg (50,000 unit) capsule TAKE 1 CAPSULE BY MOUTH ONCE A WEEK active Not Available Not Available No t Available losartan 100 mg tablet TAKE 1 TABLET BY MOUTH ONCE DAILY active Not Available Not Available No t Available fluticasone propionate 50 mcg/actuatio n nasal spray,suspen minnie Tijeras 1 spray every day by intranasal route as directed. active Not Available Not Available No t Available metformin ER 500 mg tablet,exten ded release 24 hr Take 1 tablet by mouth once daily for 90 days 2023 active Not Available Not Available Not Avai lable tadalafil 5 mg tablet TAKE 2 TABLETS BY MOUTH ONCE DAILY active Not Available Not Available No t Available tadalafil 20 mg tablet TAKE 1 TABLET BY MOUTH 30-60 MINUTES PRIOR TO SEXUAL ACTIVITY. DO NOT TAKE MORE THAN 1 TABLET IN ANY 24-HOUR PERIOD. active Not Available Not Available No t Available clobetasol 0.05 % shampoo APPLY A THIN LAYER BY TOPICAL ROUTE ONCE DAILY TO DRY SCALP LEAVE IN PLACE 15 MIN. THEN LATHER AND RINSE. active Not Available Not Available No t Available Accu-Chek Valerie Plus test strips Take 1 strip by miscell. route in the morning for 90 days. 2019 active Not Available Not Available Not Avai lable selenium sulfide 2.5 % lotion APPLY TO WET SCALP BY TOPICAL ROUTE ONCE WEEKLY WORK INTO A FULL LATHER, LEAVE ON SCALP FOR 2-3 MINUTES, RINSE THOROUGHLY, AND THEN PAT DRY 2023 active Not Available Not Available Not Avai lable COVID-19 test specimen collection DIRECTED active Not Available Not Availab le Not Available Vitals Date Recorded Heart rate Systolic And Diastolic Provider Name and Address Organization Details Last Updated DateTime 06/02/2024 58 /min 143/93 mm[Hg] Not Available Esvyda! 0 06/02/2024 09:59:13 Date Recorded Heart rate Heart rate Systolic And Diastolic Systolic And Diastolic Provider Name and Address Organization Details Last Updated DateTime 06/22/2024 64 /min 68 /min 153/91 mm[Hg] 128/89 mm[Hg] Not Available Sarah! 06/22/2024 07:59:21 Date Recorded Body height Body mass index (BMI) Body weight Oxygen saturation Oxygen saturation in Arterial blood by Pulse oximetry Heart rate Respiratory rate Body temperature Systolic And Diastolic Provider Name and Address Organization Details Last Updated DateTime 5 177.8 cm 32.6 kg/m2 283454. 47 g 97 % 97 % 84 /min 18 /min 97.4 [degF] 151/90 mm[Hg] Silvia Johnston MA [facility] 5 15:03:12 Date Recorded Body height Body mass index (BMI) Body weight Oxygen saturation Oxygen saturation in Arterial blood by Pulse oximetry Heart rate Respiratory rate Body temperature Systolic And Diastolic Provider Name and Address Organization Details Last Updated DateTime 4 177.8 cm 39.6 kg/m2 556369. 89 g 93 % 93 % 67 /min 18 /min 98.6 [degF] 157/83 mm[Hg] Silvia Johnston MA [facility] 4 16:46:07 Date Recorded Body height Body mass index (BMI) Body weight Oxygen saturation Oxygen saturation in Arterial blood by Pulse oximetry Heart rate Respiratory rate Body temperature Systolic And Diastolic Provider Name and Address Organization Details Last Updated DateTime 4 177.8 cm 31.7 kg/m2 216888. 91 g 95 % 95 % 58 /min 18 /min 98.4 [degF] 162/111 mm[Hg] Silvia Johnston MA [facility] 4 16:52:34 Date Recorded Body height Body mass index (BMI) Body weight Oxygen saturation Oxygen saturation in Arterial blood by Pulse oximetry Heart rate Respiratory rate Body temperature Systolic And Diastolic Provider Name and Address Organization Details Last Updated DateTime 4 177.8 cm 32 kg/m2 923270. 1 g 97 % 97 % 54 /min 18 /min 98 [degF] 161/93 mm[Hg] Silvia Johnston MA [facility] 4 16:59:27 Date Recorded Heart rate Heart rate Systolic And Diastolic Systolic And Diastolic Provider Name and Address Organization Details Last Updated DateTime 02/16/2024 66 /min 61 /min 132/83 mm[Hg] 135/82 mm[Hg] Not Available Esvyda! 05/13/2024 17:20:15 Date Recorded Heart rate Systolic And Diastolic Provider Name and Address Organization Details Last Updated DateTime 02/18/2024 87 /min 148/111 mm[Hg] Not Available Esvyda! 05/13/2024 17:20:15 Date Recorded Heart rate Heart rate Systolic And Diastolic Systolic And Diastolic Provider Name and Address Organization Details Last Updated DateTime 02/19/2024 68 /min 63 /min 154/96 mm[Hg] 155/92 mm[Hg] Not Available Esvyda! 05/13/2024 17:20:14 Date Recorded Heart rate Heart rate Systolic And Diastolic Systolic And Diastolic Provider Name and Address Organization Details Last Updated DateTime 02/20/2024 57 /min 57 /min 160/93 mm[Hg] 156/98 mm[Hg] Not Available Esvyda! 05/13/2024 17:20:15 Date Recorded Heart rate Heart rate Systolic And Diastolic Systolic And Diastolic Provider Name and Address Organization Details Last Updated DateTime 02/21/2024 58 /min 58 /min 152/95 mm[Hg] 157/95 mm[Hg] Not Available Esvyda! 05/13/2024 17:20:16 Date Recorded Heart rate Systolic And Diastolic Provider Name and Address Organization Details Last Updated DateTime 02/25/2024 62 /min 168/92 mm[Hg] Not Available Esvyda! 1 07/14/2023 17:20:16 Date Recorded Heart rate Systolic And Diastolic Provider Name and Address Organization Details Last Updated DateTime 03/06/2024 69 /min 155/97 mm[Hg] Not Available Esvyda! 1 07/14/2023 17:20:17 Date Recorded Heart rate Systolic And Diastolic Provider Name and Address Organization Details Last Updated DateTime 03/31/2024 75 /min 156/97 mm[Hg] Not Available Esvyda! 1 07/14/2023 17:20:16 Date Recorded Heart rate Systolic And Diastolic Provider Name and Address Organization Details Last Updated DateTime 04/01/2024 63 /min 151/95 mm[Hg] Not Available Esvyda! 1 07/14/2023 17:20:18 Date Recorded Heart rate Systolic And Diastolic Provider Name and Address Organization Details Last Updated DateTime 04/02/2024 62 /min 151/94 mm[Hg] Not Available Esvyda! 1 07/14/2023 17:20:18 Date Recorded Heart rate Systolic And Diastolic Provider Name and Address Organization Details Last Updated DateTime 04/03/2024 64 /min 146/91 mm[Hg] Not Available Esvyda! 1 07/14/2023 17:20:19 Date Recorded Heart rate Systolic And Diastolic Provider Name and Address Organization Details Last Updated DateTime 04/04/2024 58 /min 150/92 mm[Hg] Not Available Esvyda! 1 07/14/2023 17:20:19 Date Recorded Heart rate Systolic And Diastolic Provider Name and Address Organization Details Last Updated DateTime 04/05/2024 58 /min 149/94 mm[Hg] Not Available Esvyda! 1 07/14/2023 17:20:19 Date Recorded Heart rate Systolic And Diastolic Provider Name and Address Organization Details Last Updated DateTime 04/07/2024 63 /min 157/92 mm[Hg] Not Available Esvyda! 1 07/14/2023 17:20:19 Date Recorded Heart rate Heart rate Systolic And Diastolic Systolic And Diastolic Provider Name and Address Organization Details Last Updated DateTime 04/08/2024 58 /min 59 /min 156/91 mm[Hg] 168/100 mm[Hg] Not Available Esvyda! 05/13/2024 17:20:20 Date Recorded Heart rate Heart rate Systolic And Diastolic Systolic And Diastolic Provider Name and Address Organization Details Last Updated DateTime 04/09/2024 61 /min 59 /min 136/82 mm[Hg] 147/87 mm[Hg] Not Available Esvyda! 05/13/2024 17:20:21 Date Recorded Heart rate Heart rate Systolic And Diastolic Systolic And Diastolic Provider Name and Address Organization Details Last Updated DateTime 04/10/2024 56 /min 55 /min 143/86 mm[Hg] 154/89 mm[Hg] Not Available Esvyda! 05/13/2024 17:20:21 Date Recorded Heart rate Heart rate Systolic And Diastolic Systolic And Diastolic Provider Name and Address Organization Details Last Updated DateTime 04/16/2024 55 /min 60 /min 158/88 mm[Hg] 146/99 mm[Hg] Not Available Esvyda! 05/13/2024 17:20:21 Date Recorded Body height Body mass index (BMI) Body weight Oxygen saturation Oxygen saturation in Arterial blood by Pulse oximetry Heart rate Respiratory rate Body temperature Systolic And Diastolic Provider Name and Address Organization Details Last Updated DateTime 4 177.8 cm 32.3 kg/m2 519499. 28 g 97 % 97 % 81 /min 18 /min 98.1 [degF] 153/93 mm[Hg] Silvia Johnston MA [facility] 4 15:58:36 Date Recorded Heart rate Heart rate Heart rate Heart rate Systolic And Diastolic Systolic And Diastolic Systolic And Diastolic Provider Name and Address Organization Details Last Updated DateTime 4 59 /min 54 /min 88 /min 57 /min 146/89 mm[Hg] 149/94 mm[Hg] 160/107 mm[Hg] Not Available Esvyda! 4 17:23:36 Date Recorded Heart rate Systolic And Diastolic Provider Name and Address Organization Details Last Updated DateTime 05/27/2024 66 /min 146/87 mm[Hg] Not Available Esvyda! 1 06:14:32 Social History Question Answer Notes LastModified by Organizat ion Details LastModified Time Tobacco Smoking Status [email or web address] 11:17:58 What Was The Date Of Your Most Recent Tobacco Screening? 08/12/2024 [email or web address] Information not available 08/12/2024 Has Tobacco Cessation Counseling Been Provided? No Information not available 01/02/2022 On What Date Was Tobacco Cessation Counseling Provided? 01/02/2022 Information not available 01/02/2022 Sex: Male Functional Status Question Answer Note LastModified by Organization D etails LastModified Time Do you or have you ever used any other forms of tobacco or nicotine? No Information not available 01/02/2022 Mental Status None recorded. Family History Nothing Reported. Medical History Condition Response Coronary Artery Disease N Other N High Blood Pressure N Atrial Fibrillation N Thyroid Problems N Kidney or Bladder Problems N GI Problems N Depression N COPD N Blood Clots N Skin Problems N Anemia N Heart Attack ([place]) N Diabetes N Anxiety Disorder N Muscle, Joint, or Bone Problems N Seizures/Epilepsy N Acid Reflux (GERD) N Cancer N Stroke N Asthma N Allergies N High Cholesterol N Hepatitis N Liver Disease N Headaches N Osteoporosis N Heart Failure N Immunizations Vaccine Type Date Status Note Provider Nam e and Address Organization Details Recorded Time Influenza, split virus, trivalent, PF 02/12/2024 completed Ching Crawford MA [place], [place] - [facility] 02/12/2024 17:31:59 Past Encounters Encounter ID Performer Location Encounter Start Date Encounter Closed Date Diagnosis/Indication Diagnosis SNOMED-CT Code Diagnosis ICD10 Code Diagnosis Note [id number] Theodore Ott MD [address] [address] 12/14/2016 10:44:44 12/14/2016 16:17:50 Adult health examination 073280348 Z00.00 labs and follow up... Obesity 543339029 E66.9 232... Impotence 986964304 N52. 9 refill and follow up... [id number] Theodore Ott MD [address] [address] 02/16/2017 11:40:43 02/19/2017 11:18:10 Essential hypertension 05996671 I10 start med and follow up... Adult [facility] th examination 003000319 Z00.00 labs and follow up... Impotence 569389067 N52. 9 refill and follow up... [id number] Theodore Ott MD [address] [address] 07/30/2017 10:24:35 08/17/2017 10:15:31 Adult health examination 551653910 Z00.00 labs and follow up... [id number] Theodore Ott MD [address] [address] 09/24/2017 10:28:44 09/25/2017 14:35:35 Essential hypertension 91914474 I10 increase med... consider ARB with concern for DM.. med and follow up... Hyperlipidemia 14665639 E78.5 meds and follow up... 225 totol with 157 LDL... Impotence 194922333 N52. 9 refill and follow up... Adult heal th examination 877500002 Z00.00 labs and follow up... A1C was 6.3 as of .. weight 465 [id number] Theodore Ott MD [place] [address] 01/18/2018 16:07:12 01/21/2018 08:53:42 Essential hypertension 12301424 I10 increase med... consider ARB with concern for DM.. med and follow up... Obesity 092136282 E66.9 235... Hyperlipidemia 56760544 E78.5 meds and follow up... 225 totol with 157 LDL... [id number] TANMAY Rojas [place] [address] 06/21/2018 17:52:13 06/25/2018 09:27:55 Fluid level behind tympanic membrane 599038850 H65.02 Upper resp iratory infection 38017070 J06.9 Resolving. ..still audibly congested. Ok to continue OTC cough medication [id number] Theodore Ott MD [place] [address] 07/19/2018 15:56:44 07/22/2018 08:35:33 Impotence 595456124 N52.9 refill and follow up... Essential hypertension 85950072 I10 increase med... consider ARB with concern for DM.. med and follow up... Hyperlipidemia 38655733 E78.5 meds and follow up... 225 totol with 157 LDL... [id number] Theodore Ott MD [place] [address] 09/18/2018 10:46:52 09/18/2018 12:25:43 Impotence 902359309 N52.9 refill and follow up... Essential hypertension 97614314 I10 increase med... consider ARB with concern for DM.. med and follow up... Hyperlipidemia 48927335 E78.5 meds and follow up... 225 totol with 157 LDL... Adult heal th examination 708603439 Z00.00 labs and follow up... A1C was 6.3 as of .. weight 754 [id number] Theodore Ott MD [place] [id number] 01/02/2019 12:03:35 01/03/2019 09:21:03 Essential hypertension 91025701 I10 increase med... consider ARB with concern for DM.. med and follow up... Impotence 322812274 N52. 9 refill and follow up... Hyperlipidemia 41271635 E78.5 meds and follow up... 225 total with 157 LDL... Adult heal th examination 614592767 Z00.00 labs and follow up... A1C was 6.3 as of ... Trigger fi nger of left hand [id number] 2810413 M65.30 x-rays Allergic rhinitis 570491 04 J30.9 meds [id number] Theodore Ott MD [address] [address] 04/04/2019 12:01:43 04/07/2019 08:49:44 Essential hypertension 89714363 I10 increase med... consider ARB with concern for DM.. med and follow up... Impotence 408716459 N52. 9 refill and follow up... Hyperlipidemia 74953644 E78.5 meds and follow up... 225 total with 157 LDL... Adult heal th examination 281540096 Z00.00 labs and follow up... A1C was 6.3 as of ... Trigger fi nger of left hand 3372628550 0638551 M65.30 x-rays Allergic rhinitis 802385 04 J30.9 meds Screening for malignant neoplasm of colon 508787003 Z12.11 refer Type 2 lan betes mellitus without complication 507132831 E11.9 start med and follow up... A1C 7.1 as of 04-04-2019 [id number] Theodore Ott MD [address] [address] 07/07/2019 10:27:23 07/09/2019 09:28:16 Essential hypertension 35171037 I10 increase med... consider ARB with concern for DM.. med and follow up... Type 2 lan betes mellitus without complication 293038282 E11.9 start med and follow up... A1C 6.7 as of ... Impotence 946225537 N52. 9 refill and follow up... Hyperlipidemia 79964128 E78.5 meds and follow up... 225 total with 157 LDL... Adult heal th examination 432914439 Z00.00 labs and follow up......co loguard in 2021... Trigger fi nger of left hand 7202231658 2163985 M65.[address] Luther Elliott injected and feeing better.... left ring finger sx resolved Allergic rhinitis 432172 04 J30.9 meds [id number] Theodore Ott MD [address] [address] 10/06/2019 10:57:57 10/07/2019 08:30:45 Essential hypertension 11482551 I10 increase med... consider ARB with concern for DM.. med and follow up... check out-pt ... Type 2 lan betes mellitus without complication 253670681 E11.9 start med and follow up... A1C 6.7 as of ... Impotence 950746204 N52. 9 refill and follow up... Hyperlipidemia 74434692 E78.5 meds and follow up... 225 total with 157 LDL... Adult heal th examination 788936291 Z00.00 labs and follow up......co loguard in 2021... Trigger fi nger of left hand [id number] 3850699 M65.[address] Luther Elliott injected and feeing better.... left ring finger sx resolved Allergic rhinitis 417498 04 J30.9 meds [id number] Theodore Ott MD [address] [address] 02/24/2020 14:40:06 02/25/2020 07:17:01 Essential hypertension 96666944 I10 stop amlodipine because of leg swelling.. . start losartan in 1 week.. .. check out-pt and see me in 1 month... Type 2 lan betes mellitus without complication 908592158 E11.9 start med and follow up... A1C 6.7 as of ... Impotence 325469401 N52. 9 refill and follow up... Hyperlipidemia 32415418 E78.5 meds and follow up... 225 total with 157 LDL... Adult heal th examination 810092991 Z00.00 labs and follow up......co loguard in 2021... Trigger fi nger of left hand [id number] 8126723 M65.[address] Luther Elliott injected and feeing better.... left ring finger sx resolved Allergic rhinitis 832349 04 J30.9 meds [id number] Theodore Ott MD [place] [id number] 11/25/2020 10:19:52 11/26/2020 20:21:19 Essential hypertension 18122241 I10 stop amlodipine because of leg swelling.. . start losartan in 1 week... Type 2 lan betes mellitus without complication 295102739 E11.9 start med and follow up... A1C 6.7 as of ... Impotence 540292248 N52. 9 refill and follow up... Hyperlipidemia 68777124 E78.5 meds and follow up... 225 total with 157 LDL... Adult heal th examination 133596951 Z00.00 labs and follow up......co loguard in 2021... Trigger fi nger of left hand [id number] 8502076 M65.[address] Luther Elliott injected and feeing better.... left ring finger sx resolved Allergic rhinitis 578757 04 J30.9 meds [id number] Theodore Ott MD [place] [id number] 08/04/2021 13:45:52 08/10/2021 11:11:08 Type 2 diabetes mellitus without complication 281248770 E11.9 doing well Sleep apnea 53932467 G47 .30 follow up Essential hypertension 76264224 I10 stop amlodipine because of leg swelling.. . start losartan in 1 week... Impotence 182852189 N52. 9 refill and follow up... Hyperlipidemia 65879865 E78.5 meds and follow up... 225 total with 157 LDL... Adult heal th examination 627977774 Z00.00 labs and follow up......co loguard in 2021... Trigger fi nger of left hand [id number] 7013608 M65.[address] Luther Elliott injected and feeing better.... left ring finger sx resolved Allergic rhinitis 162068 04 J30.9 meds Acute dermatitis 4082782 6 L30.9 good skin care... reduce nickel exposure.. .note at distributi on of watch on left hand... [id number] Theodore Ott MD [place] [address] 01/02/2022 14:44:31 01/04/2022 11:59:07 Type 2 diabetes mellitus without complication 210178489 E11.9 doing well Essential hypertension 57966817 I10 stop amlodipine because of leg swelling.. . add hydralazin e... Impotence 211374682 N52. 9 refill and follow up... Hyperlipidemia 76152802 E78.5 meds and follow up... 225 total with 157 LDL... Adult heal th examination 589437971 Z00.00 labs and follow up......co loguard in 2021... Trigger fi nger of left hand [id number] 0133237 M65.[address] Luther Elliott injected and feeling better.... left ring finger sx resolved Allergic rhinitis 835889 04 J30.9 meds [id number] Theodore Ott MD [place] [id number] 04/04/2022 13:56:34 04/05/2022 08:30:11 Type 2 diabetes mellitus without complication 560598099 E11.9 doing well... Essential hypertension 28658598 I10 stop amlodipine because of leg swelling.. . increase hydralazin e Impotence 296381491 N52. 9 refill and follow up... Hyperlipidemia 23869362 E78.5 meds and follow up... 225 total with 157 LDL... Adult heal th examination 607452491 Z00.00 labs and follow up......co loguard in 2021... Trigger fi nger of left hand [id number] 9994007 M65.[address] Luther Elliott injected and feeling better.... left ring finger sx resolved Allergic rhinitis 012424 04 J30.9 meds Seborrheic dermatitis 50 688219 L21.9 [id number] Theodore Ott MD [address] [address] 07/05/2022 14:08:13 07/06/2022 13:51:05 Type 2 diabetes mellitus without complication 779306541 E11.9 doing well... Essential hypertension 20423427 I10 stop amlodipine because of leg swelling.. . increase hydralazin e Primary er ectile dysfunction 440408269 N52.9 meds and follow up... [id number] Theodore Ott MD [address] [address] 10/02/2022 14:21:08 10/03/2022 07:58:40 Type 2 diabetes mellitus without complication 492248893 E11.9 doing well... Obesity 826377878 E66.9 221... 10/02/2022 bmi=31.8 Essential hypertension 58680045 I10 stop amlodipine because of leg swelling.. . increase hydralazin e Impotence 014680700 N52. 9 refill and follow up... Hyperlipidemia 16683787 E78.5 meds and follow up... 225 total with 157 LDL... Adult heal th examination 467709402 Z00.00 labs and follow up......co loguard in 2021... Trigger fi nger of left hand [id number] 1366022 M65.[address] Luther Elliott injected and feeling better.... left ring finger sx resolved Allergic rhinitis 233530 04 J30.9 meds Seborrheic dermatitis 50 498439 L21.9 [id number] Theodore Ott MD [address] [address] 01/09/2023 17:25:02 01/10/2023 11:00:47 Type 2 diabetes mellitus without complication 437550797 E11.9 doing well... Essential hypertension 16811031 I10 stop amlodipine because of leg swelling.. . increase hydralazin e Impotence 099888423 N52. 9 refill and follow up... Obesity 165743743 E66.9 bmi=31.8 Hyperlipidemia 90030378 E78.5 meds and follow up... 225 total with 157 LDL... Adult heal th examination 026418762 Z00.00 labs and follow up......co loguard in 2021... Trigger fi nger of left hand [id number] 9601375 M65.[address] Luther Elliott injected and feeling better.... left ring finger sx resolved Allergic rhinitis 753981 04 J30.9 meds Seborrheic dermatitis 50 255175 L21.9 [id number] Theodore Ott MD [address] [address] 10/11/2023 16:20:29 10/12/2023 08:43:16 Essential hypertension 11670474 I10 stop amlodipine because of leg swelling.. . increase hydralazin e Type 2 lan betes mellitus without complication 582581843 E11.9 doing well... Morbid obesity 335509009 E66.01 Obesity 758134321 E66.9 221... 10/02/2022 bmi=31.8 Impotence 888823247 N52. 9 refill and follow up... Hyperlipidemia 35140494 E78.5 meds and follow up... 225 total with 157 LDL... Adult heal th examination 208137963 Z00.00 labs and follow up......co loguard in 2021... Trigger fi nger of left hand [id number] 8839717 M65.[address] Luther Elliott injected and feeling better.... left ring finger sx resolved Allergic rhinitis [id number] 04 J30.9 meds Seborrheic dermatitis 50 757721 L21.9 Screening for malignant neoplasm of colon 007384444 Z12.11 refer [id number] Theodore Ott MD [address] [address] 01/14/2024 16:39:18 01/15/2024 10:13:15 Type 2 diabetes mellitus without complication 528558178 E11.9 doing well... Obesity 342835116 E66.8 221... 01/14/2024 bmi=31.7 Essential hypertension 96946439 I10 stop amlodipine because of leg swelling.. . check BP as out-pt and follow up. Hyperlipidemia 88445105 E78.5 meds and follow up... Seborrheic dermatitis 50 871354 L21.9 Allergic rhinitis 759774 04 J30.9 meds Primary er ectile dysfunction 762114155 N52.9 meds and follow up... Screening for malignant neoplasm of colon 084507538 Z12.11 cologuard due Vitamin D deficiency 347 37606 E55.9 [id number] Theodore Ott MD [address] [address] 02/12/2024 16:01:52 02/13/2024 10:16:44 Type 2 diabetes mellitus without complication 321200724 E11.9 doing well... Obesity 164314020 E66.8 bmi=32 Administra tion of influenza vaccine 21972861 Z23 Laceration of finger of left hand [id number] 9676657 S61.213A stable... follow up PT... Essential hypertension 50076232 I10 stop amlodipine because of leg swelling.. . check BP as out-pt and follow up. Hyperlipidemia 49518683 E78.5 meds and follow up... Vitamin D deficiency 347 25768 E55.9 Screening for malignant neoplasm of colon 743583404 Z12.11 cologuard due [id number] Theodore Ott MD [address] [address] 05/13/2024 15:32:43 05/14/2024 10:12:41 Type 2 diabetes mellitus without complication 489757448 E11.9 doing well... Obesity 081329087 E66.9 bmi=32.3 Laceration of finger of left hand [id number] 6545740 S61.213A stable.. Essential hypertension 19984093 I10 check BP as out-pt and follow up. Hyperlipidemia 38473821 E78.5 meds and follow up... Vitamin D deficiency 347 53103 E55.9 Screening for malignant neoplasm of colon 174015447 Z12.11 cologuard due Seborrheic dermatitis 50 045891 L21.9 [id number] Theodore Ott MD [address] [address] 08/12/2024 14:48:32 08/13/2024 08:28:10 Adult health examination 037428114 Z00.00 Health Risk Assessment collected and reviewed Type 2 lan betes mellitus without complication 998880806 E11.9 doing well... Obesity 330199619 E66.9 bmi=32.6 Essential hypertension 07110214 I10 check BP as out-pt and follow up. Hyperlipidemia 23386324 E78.5 meds and follow up... Vitamin D deficiency 347 68486 E55.9 Screening for malignant neoplasm of colon 387306752 Z12.11 cologuard due Seborrheic dermatitis 50 297431 L21.9 Primary er ectile dysfunction 104994075 N52.9 meds and follow up... Health Concerns Section Related Observation LastModified by Organization Detai ls LastModified Time None Recorded Concern Status LastModified by Organization Details LastModified Time None Recorded Advance Directives Directive None Recorded Payers Insurance Date Sequence Insurance Name Policy Number Policy Chau Covered Member ID Chau Member ID Guarantor Name 08/12/2024 1 [employer] [facility] (PPO) [id number] Armand Carvalho [id number] Armand Carvalho 05/13/2024 1 [place] [id number] Armand Carvalho [id number] Armand Carvalho 11/29/2024 1 [facility] (PPO) [id number] Armand Carvalho [id number] Armand Carvalho 08/12/2024 2 [facility] Armand Carvalho [id number] Armand Carvalho 05/13/2024 1 [facility] [id number] Armand Carvalho [id number] Armand Carvalho Notes Date Note Type Note Provider Name and Address Organization Details Recorded Time 10/11/2023 text/html no fevers/chills/SO B... no S/H ideations... no cigarettes... social drinker... Theodore Ott MD Attn: Accounting,[address] [facility], [place], [address], [facility] 10/11/2023 17:08:30 01/14/2024 text/html no fevers/chills/SO B... no S/H ideations... Theodore Ott MD Attn: Accounting,[address] [place], [address], [facility] 01/14/2024 17:38:46 02/12/2024 text/html left finger x 2 lac x 1 month ago... was cut at work by a co-worker on accident with a knife.. had 20 sutures per patient, but were removed without complications.. left hand dominant... no S/H ideations Theodore Ott MD Attn: Accounting,[address] [facility], [place], [address], [facility] 02/12/2024 17:25:08 05/13/2024 text/html brought in SBP readings.. no fevers/chills/SO B... no S/H ideations... itchy scalp still an issue... he wears hats a lot because he has dreads... no pain/open wounds.. Theodore Ott MD Attn: Accounting,[address] [facility], [place], [address], [facility] 05/13/2024 18:04:57 08/12/2024 text/html here for folow up... no dieting/excerisi ng, but started walking dogs x 1 month.. no smoke/drink..no S/H ideations.. Theodore Ott MD Attn: Accounting,[address] [place], [address], [facility] 08/12/2024 15:34:02
--- NOTE | 2024-11-29 15:21 | ECG_ITS ---
Test Date: 2024-11-29 15:31:19 Measurements Intervals [place] Rate: 67 P: 7 UT: 163 QRS: -44 QRSD: 116 T: 140 QT: 442 QTc: 468 Interpretive Statements SINUS RHYTHM WITH MARKED SINUS ARRHYTHMIA LEFT AXIS DEVIATION [QRS AXIS < -30] LEFT VENTRICULAR HYPERTROPHY AND ST-T CHANGE [VOLTAGE CRITERIA PLUS ST/T ABNORMALITY] No previous ECG available for comparison Electronically Signed On 11-30-2024 13:37:38 CDT by Quentin Ortega M.D.
[2024-11-29 15:47] LABS: Hematocrit 45.4 % (42.0-52.0); Hemoglobin 14.9 g/dL (14.0-18.0); Immature Granulocyte Percent A 0.5 % (0-0.5); Lymphocytes Absolute Auto 2.22 K/mm3 (0.9-3.2); Mean Corpuscular HGB Conc 32.8 g/dl (32-36); Mean Corpuscular Hemoglobin 30.3 pg (26-34); Mean Corpuscular Volume 92.5 fl (80-100); Nucleated Red Blood Cells Absolute Auto 0.000 K/mm3 (0.0-0.012); Nucleated Red Blood Cells Perc 0.0 % (0.0-0.2); Platelet Count Result 150 k/mm3 (150-375); Red Blood Count 4.91 M/mm3 (4.6-6.20); White Blood Count 6.3 K/mm3 (4.5-10.0)
[2024-11-29 15:57] LABS: Alanine Aminotransferase 24 U/L (6-50); Albumin Level 4.0 g/dL (3.5-5.1); Alkaline Phosphatase 66 U/L (38-126); Anion Gap 9 mmol/L (4-12); Aspartate Amino Transferase 25 U/L (17-59); Bilirubin,Total 0.6 mg/dL (0.2-1.3); Blood Urea Nitrogen 14 mg/dL (9-20); Calcium 8.8 mg/dL (8.4-10.2); Carbon Dioxide 28 mmol/L (22-30); Chloride 101 mmol/L (98-107); Estimated CRCL calculation 82 ml/min; Estimated Glomerular Filt Rate > 60; Glucose 204 mg/dL (65-110); Potassium 3.6 mmol/L (3.4-5.0); Sodium 138 mmol/L (137-145); Total Protein 7.8 g/dL (6.3-8.2)
--- OUTSIDE RECORDS SUMMARY | 2024-11-29 17:07 | XMS_ITS | Referral Summary ---
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
--- OUTSIDE RECORDS SUMMARY | 2024-11-29 17:07 | XMS_ITS | Clinical Summary ---
Author Organization [facility] Address [address] [place] [address] Care Team Providers Care Coating Operator Name Role Phone Theodore Ott MD Primary Care Provider [phone] Allergies No known active allergies Medications amLODIPine [...] mg capsule Take by mouth A ctive jxwqj-3-twz-epa -dpa-fish oil 1,050-1,200 mg capsule 1 capsule [...] on file Legal Sex Male 11:40 PM [facility] Gender Identity Not on file Sexual Orientation [...] patient's age to complete this topic Insurance [employer] [place] [employer] [facility] ACCESS CHOICE Care Teams Coating Operator Relationship Specialty Start Date End Date Theodore Ott MD [address] [place] [id number] PCP - General Family Medicine 06/03/19
--- OUTSIDE RECORDS SUMMARY | 2024-11-29 17:07 | XMS_ITS | Clinical Summary ---
Author Organization [facility] Address [address] [facility] [place] [address] Care Team Providers Care Website Optimization Strategist Name Role Phone Theodore Ott Primary Care Provider [phone] Source Comments [facility],non-owned Affiliates and Associated Physician Practices is amultiple site organization consisting of ambulatory clinics and hospital sitesin [place], [place], [place] and [place]. This disclosure is being madepursuant to the Care Everywhere program and may not contain all information available regarding this patient. 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
--- NOTE | 2024-11-29 17:17 | ED_ITS ---
HPI - General Adult General Chief complaint: Back Pain/Injury <Jason Ureña MD - Last Filed: 11/29/24 18:52> Stated complaint: shoulder blade pain <Jason Ureña MD - Last Filed: 11/29/24 18:52> Time Seen by Provider: 11/29/24 16:47 <Jason Ureña MD - Last Filed: 11/29/24 18:52> History of Present Illness HPI narrative: Patient 58-year-old gentleman presents emergency department with chief complaint of midthoracic pain started yesterday the patient does report that he does lot of lifting and moving reports he has not done anything out of the ordinary the patient denies trauma reports that he has pain with movement and pain with inspiration and exhalation. The patient denies fever patient denies specific chest pain patient reports no prior history of PE does report that he has history of hypertension and diabetes <Jason Ureña MD - Last Filed: 11/29/24 18:52> Related Data Home medications: Home Medications ?Medication ?Instructions ?Recorded ?Confirmed ?Last Taken ?Type losartan 100 mg tablet mg 11/29/24 Unknown History terazosin 5 mg capsule mg 11/29/24 Unknown History <Jason Ureña MD - Last Filed: 11/29/24 18:52> Allergies/adverse reactions: Allergies Allergy/AdvReac Type Severity Reaction Status Date / Time No Known Allergies Allergy Verified 11/29/24 15:21 <Jason Ureña MD - Last Filed: 11/29/24 18:52> Review of Systems 2 Review of Systems: A 10 system review of systems was completed on the patient and is negative except for what is stated in the HPI. Nursing and ancillary documentation was reviewed. <Jason Ureña MD - Last Filed: 11/29/24 18:52> [facility] Past Medical History Medical History: Medical History (Updated 11/29/24 @ 22:05 by Kenyon Lamar MD) Thoracic compression fracture Chronic appearing compression fracture T7 through T9 noted on CT scan 11/29/2024 Erectile dysfunction Vitamin D deficiency Essential hypertension <Jason Ureña MD - Last Filed: 11/29/24 18:52> Exam 2 Narrative: GENERAL: Well-appearing, well-nourished, and in no acute distress. HEAD: Normocephalic, atraumatic. EYES: PERRLA and EOMI. ENT: Nares clear, no rhinorrhea or epistaxis. Mucous membranes moist. NECK: Supple. CHEST: Clear to auscultation. No respiratory distress. HEART: Regular rate and rhythm. No murmur heard. Normal peripheral pulses. ABDOMEN: Soft, nontender, nondistended, normal active bowel sounds. Back: There is tenderness palpation in the paraspinous muscles at the midthoracic area just medial to the scapula on the right side there is positive muscle spasms present on exam that reproduces the pain on palpation EXTREMITIES: Normal range of motion. No edema. SKIN: Warm, dry, no rash. NEURO: No focal deficits. Alert and oriented x3. PSYCH: Normal mood and affect. <Jason Ureña MD - Last Filed: 11/29/24 18:52> Course Course Emergency Course: Patient care signed out to me by previous provider pending delta troponin re-evaluation. Went and re-evaluated the patient he is still having midback towards midthoracic pain. He CT angiography was reviewed without any pulmonary embolism or dissection. His blood pressure is elevated 170s. Repeat troponin is elevated with a greater than 20% delta. Repeat EKG shows new worsening T- wave inversions and biphasic T-waves in the leads V2, V3 and lateral inversions v456. Worse from his initial EKG that showed T-wave flattening. Given patient's pain and new EKG findings and elevated troponin considerations for cardiac pathology. I discussed the case with the field foreman Dr. Selby who does not see a STEMI and recommended not Interventional Cardiology evaluation. Dr. Ortega from cardiology reviewed EKGs with me and recommendations to initiate heparin and nitroglycerin for chest pain. This was ordered in IV form and he was given a bolus of heparin for concern for elevated troponin, NSTEMI and cardiac pathology. Patient's repeat CXR EKG shows stable ST segment biphasic waves deep inversions in the lateral leads. Repeat troponin pending. Patient was accepted to the ICU under Dr. Connelly for continued nitroglycerin infusion, heparin drip and Cardiology evaluation. After discussions with the greenhouse transplanter patient would warrant a cardiac catheterization if he has any worsening symptoms or pain despite heparin and nitroglycerin. Spoke to the hospitalist Dr. Urbina who accepted the patient to the ICU at this time as well. Patient and family members made aware of the plan and agreeable for admission. Admission orders placed. <Kenyon Lamar MD - Last Filed: 11/29/24 22:05> Vital Signs Vital signs: Vital Signs Temperature 36.6 C 11/29/24 15:13 Pulse Rate 74 11/29/24 15:13 Respiratory Rate 18 11/29/24 15:13 Blood Pressure 176/96 H 11/29/24 15:13 Pulse Oximetry 99 11/29/24 15:13 Oxygen Delivery Room Air 11/29/24 15:13 Temperature 36.6 C 11/29/24 16:01 Pulse Rate 49 L 11/29/24 21:18 Respiratory Rate 21 H 11/29/24 21:18 Blood Pressure 173/103 H 11/29/24 21:02 Pulse Oximetry 100 11/29/24 21:18 Oxygen Delivery Room Air 11/29/24 15:13 <Jason Ureña MD - Last Filed: 11/29/24 18:52> Vital Signs Temperature 36.6 C 11/29/24 15:13 Pulse Rate 74 11/29/24 15:13 Respiratory Rate 18 11/29/24 15:13 Blood Pressure 176/96 H 11/29/24 15:13 Pulse Oximetry 99 11/29/24 15:13 Oxygen Delivery Room Air 11/29/24 15:13 Temperature 36.6 C 11/29/24 16:01 Pulse Rate 49 L 11/29/24 21:18 Respiratory Rate 21 H 11/29/24 21:18 Blood Pressure 173/103 H 11/29/24 21:02 Pulse Oximetry 100 11/29/24 21:18 Oxygen Delivery Room Air 11/29/24 15:13 <Kenyon Lamar MD - Last Filed: 11/29/24 22:05> Medical Decision Making Vital Signs Vital Signs: Vital Signs Temperature 36.6 C 11/29/24 15:13 Pulse Rate 74 11/29/24 15:13 Respiratory Rate 18 11/29/24 15:13 Blood Pressure 176/96 H 11/29/24 15:13 Pulse Oximetry 99 11/29/24 15:13 Oxygen Delivery Room Air 11/29/24 15:13 Temperature 36.6 C 11/29/24 16:01 Pulse Rate 49 L 11/29/24 21:18 Respiratory Rate 21 H 11/29/24 21:18 Blood Pressure 173/103 H 11/29/24 21:02 Pulse Oximetry 100 11/29/24 21:18 Oxygen Delivery Room Air 11/29/24 15:13 <Jason Ureña MD - Last Filed: 11/29/24 18:52> Vital Signs Temperature 36.6 C 11/29/24 15:13 Pulse Rate 74 11/29/24 15:13 Respiratory Rate 18 11/29/24 15:13 Blood Pressure 176/96 H 11/29/24 15:13 Pulse Oximetry 99 11/29/24 15:13 Oxygen Delivery Room Air 11/29/24 15:13 Temperature 36.6 C 11/29/24 16:01 Pulse Rate 49 L 11/29/24 21:18 Respiratory Rate 21 H 11/29/24 21:18 Blood Pressure 173/103 H 11/29/24 21:02 Pulse Oximetry 100 11/29/24 21:18 Oxygen Delivery Room Air 11/29/24 15:13 <Kenyon Lamar MD - Last Filed: 11/29/24 22:05> Lab Data Result diagrams: 11/29/24 15:32 11/29/24 15:32 <Jason Ureña MD - Last Filed: 11/29/24 18:52> Labs: Lab Results 11/29/24 11/29/24 Range/Units 15:32 18:39 WBC 6.3 (4.5-10.0) K/mm3 RBC 4.91 (4.6-6.20) M/mm3 Hgb 14.9 (14.0-18.0) g/dL Hct 45.4 (42.0-52.0) % MCV 92.5 (80-100) fl MCH 30.3 (26-34) pg MCHC 32.8 (32-36) g/dl RDW 13.1 (11.5-14.5) % Plt Count 150 (150-375) k/mm3 MPV 11.6 H (7.4-10.4) fl Immature Gran % (Auto) 0.5 (0-0.5) % Neut % (Auto) 50.6 (45.5-73.1) % Lymph % (Auto) 35.4 (18.3-44.2) % Carson % (Auto) 12.1 H (2.6-8.5) % Eos % (Auto) 0.8 (0-4.4) % Baso % (Auto) 0.6 (0.2-1.2) % Lymph # (Auto) 2.22 (0.9-3.2) K/mm3 Carson # (Auto) 0.8 H (0.1-0.6) K/mm3 Eos # (Auto) 0.1 (0-0.3) K/mm3 Baso # (Auto) 0.0 (0.0-0.1) K/mm3 Abs Immat Gran (auto) 0.03 (0.00-0.031) K/mm3 Absolute Neuts (auto) 3.2 (1.3-6.7) K/mm3 Absolute Nucleated RBC 0.000 (0.0-0.012) K/mm3 Nucleated RBC % 0.0 (0.0-0.2) % PT 13.6 (11.1-14.7) Seconds INR 1.0 APTT 30.9 (22.3-36.8) Seconds Sodium 138 (137-145) mmol/L Potassium 3.6 (3.4-5.0) mmol/L Chloride 101 (98-107) mmol/L Carbon Dioxide 28 (22-30) mmol/L Anion Gap 9 (4-12) mmol/L BUN 14 (9-20) mg/dL Creatinine 1.08 (0.7-1.3) mg/dL Estim Creat Clear Calc 82 ml/min Estimated GFR > 60 (59 - ) Glucose 204 H (65-110) mg/dL Calcium 8.8 (8.4-10.2) mg/dL Total Bilirubin 0.6 (0.2-1.3) mg/dL AST 25 (17-59) U/L ALT 24 (6-50) U/L Alkaline Phosphatase 66 (38-126) U/L Troponin I 0.013 0.027 D (0.000-0.034) ng/mL NT-Pro-B Natriuret Pep 127 H (19.9-100) pg/mL Total Protein 7.8 (6.3-8.2) g/dL Albumin 4.0 (3.5-5.1) g/dL <Jason Ureña MD - Last Filed: 11/29/24 18:52> Lab Results 11/29/24 11/29/24 Range/Units 15:32 18:39 WBC 6.3 (4.5-10.0) K/mm3 RBC 4.91 (4.6-6.20) M/mm3 Hgb 14.9 (14.0-18.0) g/dL Hct 45.4 (42.0-52.0) % MCV 92.5 (80-100) fl MCH 30.3 (26-34) pg MCHC 32.8 (32-36) g/dl RDW 13.1 (11.5-14.5) % Plt Count 150 (150-375) k/mm3 MPV 11.6 H (7.4-10.4) fl Immature Gran % (Auto) 0.5 (0-0.5) % Neut % (Auto) 50.6 (45.5-73.1) % Lymph % (Auto) 35.4 (18.3-44.2) % Carson % (Auto) 12.1 H (2.6-8.5) % Eos % (Auto) 0.8 (0-4.4) % Baso % (Auto) 0.6 (0.2-1.2) % Lymph # (Auto) 2.22 (0.9-3.2) K/mm3 Carson # (Auto) 0.8 H (0.1-0.6) K/mm3 Eos # (Auto) 0.1 (0-0.3) K/mm3 Baso # (Auto) 0.0 (0.0-0.1) K/mm3 Abs Immat Gran (auto) 0.03 (0.00-0.031) K/mm3 Absolute Neuts (auto) 3.2 (1.3-6.7) K/mm3 Absolute Nucleated RBC 0.000 (0.0-0.012) K/mm3 Nucleated RBC % 0.0 (0.0-0.2) % PT 13.6 (11.1-14.7) Seconds INR 1.0 APTT 30.9 (22.3-36.8) Seconds Sodium 138 (137-145) mmol/L Potassium 3.6 (3.4-5.0) mmol/L Chloride 101 (98-107) mmol/L Carbon Dioxide 28 (22-30) mmol/L Anion Gap 9 (4-12) mmol/L BUN 14 (9-20) mg/dL Creatinine 1.08 (0.7-1.3) mg/dL Estim Creat Clear Calc 82 ml/min Estimated GFR > 60 (59 - ) Glucose 204 H (65-110) mg/dL Calcium 8.8 (8.4-10.2) mg/dL Total Bilirubin 0.6 (0.2-1.3) mg/dL AST 25 (17-59) U/L ALT 24 (6-50) U/L Alkaline Phosphatase 66 (38-126) U/L Troponin I 0.013 0.027 D (0.000-0.034) ng/mL NT-Pro-B Natriuret Pep 127 H (19.9-100) pg/mL Total Protein 7.8 (6.3-8.2) g/dL Albumin 4.0 (3.5-5.1) g/dL <Kenyon Lamar MD - Last Filed: 11/29/24 22:05> Critical Care Time Critical Care Time Critical Care Time: Yes <Kenyon Lamar MD - Last Filed: 11/29/24 22:05> Total Critical Care Time: 35 <Kenyon Lamar MD - Last Filed: 11/29/24 22:05> Discharge Plan Discharge Clinical Impression: ACS (acute coronary syndrome), Anginal equivalent, ST segment changes on electrocardiogram, Hypertension, Elevated troponin <Jason Ureña MD - Last Filed: 11/29/24 18:52> Patient Disposition: Still a Patient <Jason Ureña MD - Last Filed: 11/29/24 18:52> Condition: Guarded Prognosis <Jason Ureña MD - Last Filed: 11/29/24 18:52>
[2024-11-29 17:57] LABS: NT Pro B Type Natriuretic Pept 127 pg/mL (19.9-100); Troponin I 0.013 ng/mL (0.000-0.034)
[2024-11-29] MEDS: HYDROcodone/acetaminophen (*CRX) 5-325 MG TABLET 1 TAB PO (17:58)
[2024-11-29] MEDS: LIDOCAINE 5% PATCH 1 PATCH TRANSDERM (17:58)
[2024-11-29] MEDS: ORPHENADRINE CITRATE 100 MG TABLET.ER PO (17:58)
[2024-11-29 18:00] LABS: INR 1.0; Prothrombin Time 13.6 Seconds (11.1-14.7)
[2024-11-29 18:01] LABS: Partial Thromboplastin Time 30.9 Seconds (22.3-36.8)
[2024-11-29 19:10] LABS: Troponin I 0.027 ng/mL (0.000-0.034)
--- NOTE | 2024-11-29 19:14 | ECG_ITS ---
Test Date: 2024-11-29 19:25:15 Measurements Intervals [place] Rate: 61 P: 15 IA: 158 QRS: -42 QRSD: 118 T: 150 QT: 467 QTc: 473 Interpretive Statements SINUS RHYTHM WITH OCCASIONAL SUPRAVENTRICULAR PREMATURE COMPLEXES LEFT AXIS DEVIATION [QRS AXIS < -30] LEFT VENTRICULAR HYPERTROPHY AND ST-T CHANGE [VOLTAGE CRITERIA PLUS ST/T ABNORMALITY] Compared to ECG 11/29/2024 15:31:19 no change compared to prior EKG Electronically Signed On 11-30-2024 13:41:02 CDT by Quentin Ortega M.D.
[2024-11-29] MEDS: NITROGLYCERIN/D5W 200 MCG/ML 50 MG/250 ML BTL IV CONT (20:12)
[2024-11-29] MEDS: PANTOPRAZOLE SODIUM IV 40 MG VIAL IV PUSH (20:25)
[2024-11-29] MEDS: HEPARIN SOD/D5W 100 UNITS/ML 25,000 UNITS/250 ML BAG 10 UNITS IV CONT (20:27)
--- NOTE | 2024-11-29 21:01 | PM.IMHP ---
H&P: HPI History of Present Illness Date/Time: 11/29/24 21:01 Chief Complaint: Mid back pain Narrative: 58-year-old male with a past medical history of essential hypertension, type 2 diabetes mellitus on metformin, erectile dysfunction and obstructive sleep apnea who presented to the ER with midthoracic back pain that started yesterday. The patient reports that he was at 6 flags yesterday. Around 10:00 he started having pain in his right thoracic region. On palpation of the area patient does have reproducible pain. He reports pain is worse with deep breathing and sudden movements. He denies any cough her recent lifting or pulling beyond what he would usually do. He reports shortness of breath only because the pain is worse with deep breathing. He denies any dyspnea on exertion. He has not had any cough or congestion, fevers or chills. His reports that the patient has been told in the past he has a ?enlarged heart?. In patient had a stress test greater than 5 years ago that was negative. The stress test was performed in [place]. He has had a history of irregular heartbeats and is EKG in the ER did demonstrate sinus arrhythmia and PVCs. He denies any history of AFib. He has not had any lower extremity swelling orthopnea or paroxysmal nocturnal dyspnea. He does not have a family history of heart disease. He was initially treated in the ER with [place], lidocaine patch, muscle relaxers and Protonix. Despite these measures the patient was still having pain that he reports was a 11/10 in intensity. His repeat troponin went from 0.01 to up to 0.027. With his repeat EKG demonstrated new ST T-wave changes in V2 V3 and inversions in V4 5 and 6. The ER provider discussed patient's case with the insulation installer who did not see evidence of STEMI and subsequently the non insulation installer recommended that the patient be started on heparin and nitroglycerin. The patient reports that after he was started on the nitroglycerin his pain decreased significantly down to 6/10 in intensity where he had had no improvement previous. He is 6 hour EKG demonstrated persistent changes in lateral eat and repeat troponin is pending on the time of patient's arrival to the ICU. The patient's was at bedside and helps provide some of the information with the patient's permission. Patient's home blood pressure medications including losartan and terazosin were filled August 12, 2024 for 90 day supply. He reports that he only took the terazosin for 1 day and it made him feel funny so he stopped it. He has a follow-up with his primary care physician in next couple of weeks. Review of Systems Review of Systems: 12 systems were reviewed with pertinent positives and negatives per HPI. Except as documented in the HPI, all other systems were reviewed and are negative. His reports that the patient has had increased urinary urgency and he reports he has been having weak urinary stream with hesitancy. [facility] Past Medical History Medical History (Updated 11/29/24 @ 22:49 by Ashlee Urbina DO) BPH (benign prostatic hyperplasia) Type 2 diabetes mellitus Obstructive sleep apnea Thoracic compression fracture Chronic appearing compression fracture T7 through T9 noted on CT scan 11/29/2024 Erectile dysfunction Vitamin D deficiency Essential hypertension Surgical History Surgical History (Updated 11/29/24 @ 22:32 by Ashlee Urbina DO) History of appendectomy Family History Family History (Updated 11/29/24 @ 22:35 by Ashlee Urbina DO) Father Fire accident Mother Age older than 80 years Dementia Sibling Gout Son Sudden cardiac Hypertrophic cardiomyopathy Social History Social History (Updated 11/29/24 @ 22:37 by Ashlee Urbina DO) Social History: The patient lives with his of 19 years. They have 7 living children their son 16 years old of what sounds like hypertrophic cardiomyopathy during a sporting event. Several of her children are of the age to still live at home. Patient is a lifelong nonsmoker and drinks alcohol a few times a year in moderation. He denies illicit substance use. He works at a [employer] making [employer]. Code status: Full code Surrogate decision maker: Nataliya Carvalho () Smoking status: Never smoker Alcohol intake: current Drinks per week: 1 Substance use: never Substance use type: does not use Do You Feel Safe in your Home?: Yes Lack of Transportation: No Lack of Food: Never True Current Housing: I Have Housing Concerned About Future Housing: Decline to Answer Difficulty Paying Gas/Electric Bills: Decline to Answer Difficulty Paying for Meds: No Currently Unemployed: No Education: Decline to Answer Difficulty w/ Childcare or Family Care: Decline to Answer Spiritual care concerns: No Meds Home Medications and Allergies Home Medications ?Medication ?Instructions ?Recorded ?Confirmed ?Type cyclobenzaprine 10 mg tablet 10 mg PO TID PRN muscle spasm #21 11/29/24 Rx tabs diclofenac potassium 50 mg tablet 50 mg PO TID PRN pain #30 tabs 11/29/24 Rx lidocaine 5 % topical patch 1 patch topical DAILY #15 ea 11/29/24 Rx (Lidoderm) losartan 100 mg tablet 100 mg PO DAILY 11/29/24 11/29/24 History magnesium 200 mg tablet 200 mg PO DAILY 11/29/24 11/29/24 History metformin 500 mg tablet 500 mg PO DAILY 11/29/24 11/29/24 History naproxen sodium 220 mg capsule 440 mg PO DAILY 11/29/24 11/29/24 History (Aleve) prednisone 20 mg tablet 40 mg (2 x 20 mg) PO DAILY 5 days 11/29/24 Rx #10 tabs Allergies Allergy/AdvReac Type Severity Reaction Status Date / Time No Known Allergies Allergy Verified 11/29/24 15:21 Vital Signs Vital Signs - 24 hr 11/29/24 15:13 11/29/24 15:32 11/29/24 16:01 Temperature 98 F 97.9 F Pulse Rate 74 66 62 Respiratory Rate 18 18 20 Blood Pressure 176/96 H 167/96 H 156/94 H Pulse Oximetry 99 99 95 Oxygen Delivery Room Air 11/29/24 16:47 11/29/24 17:45 11/29/24 19:42 Temperature Pulse Rate 67 66 63 Respiratory Rate 23 H 22 H 18 Blood Pressure 157/91 H 174/103 H Pulse Oximetry 98 98 96 Oxygen Delivery 11/29/24 19:44 11/29/24 20:02 11/29/24 20:12 Temperature Pulse Rate 65 60 52 L Respiratory Rate 24 H 18 Blood Pressure 174/103 H 173/102 H 173/102 H Pulse Oximetry 96 97 Oxygen Delivery 11/29/24 20:17 11/29/24 20:31 11/29/24 20:33 Temperature Pulse Rate 60 59 L 57 L Respiratory Rate 21 H 28 H Blood Pressure 165/123 H 182/111 H 182/111 H Pulse Oximetry 99 98 Oxygen Delivery 11/29/24 20:50 11/29/24 20:56 Temperature Pulse Rate 56 L 65 Respiratory Rate Blood Pressure 174/103 H Pulse Oximetry Oxygen Delivery Exam Const: Other: Obese, no acute distress, appears stated age HENMT: Other: Crowded posterior oropharynx, pink staining to the tongue consistent with food dye, no oral pharyngeal erythema Eyes: Other: Pupils are equal and reactive, no scleral icterus, mildly injected conjunctiva Neck: Other: No JVD, large neck circumference Resp: Other: Clear to auscultation bilaterally, no increased work of breathing Cardio: Other: Sinus bradycardia, 2+ bilateral radial pedal pulses, no murmurs GI: Other: Obese, soft, nontender Skin: Other: No jaundice, no pallor Neuro: Other: Alert oriented, speech is clear, no facial asymmetry, moves all extremities equally Extrem: Other: No clubbing, cyanosis or edema Psych: Other: Appropriate mood and affect, pleasant and cooperative, judgment and insight intact H&P: Results Labs Labs: Laboratory Tests 11/29/24 15:32 11/29/24 15:32 11/29/24 11/29/24 11/29/24 15:32 18:39 20:56 WBC 6.3 RBC 4.91 Hgb 14.9 Hct 45.4 MCV 92.5 MCH 30.3 MCHC 32.8 RDW 13.1 Plt Count 150 MPV 11.6 H Immature Gran % (Auto) 0.5 Neut % (Auto) 50.6 Lymph % (Auto) 35.4 [place] % (Auto) 12.1 H Eos % (Auto) 0.8 Baso % (Auto) 0.6 Lymph # (Auto) 2.22 [place] # (Auto) 0.8 H Eos # (Auto) 0.1 Baso # (Auto) 0.0 Abs Immat Gran (auto) 0.03 Absolute Neuts (auto) 3.2 Absolute Nucleated RBC 0.000 Nucleated RBC % 0.0 PT 13.6 INR 1.0 APTT 30.9 Sodium 138 Potassium 3.6 Chloride 101 Carbon Dioxide 28 Anion Gap 9 BUN 14 Creatinine 1.08 Estim Creat Clear Calc 82 Estimated GFR > 60 Glucose 204 H Calcium 8.8 Total Bilirubin 0.6 AST 25 ALT 24 Alkaline Phosphatase 66 Troponin I 0.013 0.027 D NT-Pro-B Natriuret Pep 127 H Total Protein 7.8 Albumin 4.0 Nasal MRSA (PCR) Pending Impressions Chest X-Ray 11/29/24 15:56 IMPRESSION: No acute cardiopulmonary process. Acute versus chronic mild height loss at T8-T10. Chest CTA 11/29/24 18:41 IMPRESSION: No CT evidence of acute pulmonary embolus. No acute process detected in the chest. EKG x3 personally reviewed and interpreted with findings as discussed above. Cardiology interpretation pending. All imaging and EKGs personally reviewed and interpreted. And unless stated otherwise agree with radiologic and cardiology interpretation. Assessment and Plan Assessment and plan (1) Anginal equivalent: Code(s): I20.89 - Other forms of angina pectoris Status: Acute (2) ST segment changes on electrocardiogram: Code(s): R94.31 - Abnormal electrocardiogram [ECG] [EKG] Status: Acute (3) Pain in right paraspinal region: Code(s): M54.9 - Dorsalgia, unspecified Status: Acute (4) Hypertension: Qualifiers: Hypertension type: primary hypertension Qualified Code(s): I10 - Essential (primary) hypertension Code(s): I10 - Essential (primary) hypertension Status: Acute (5) Type 2 diabetes mellitus: Qualifiers: Diabetes mellitus nursing home insulin use: without nursing home use Diabetes mellitus complication status: without complication Qualified Code(s): E11.9 - Type 2 diabetes mellitus without complications Code(s): E11.9 - Type 2 diabetes mellitus without complications Status: Acute (6) Obstructive sleep apnea: Code(s): G47.33 - Obstructive sleep apnea (adult) (pediatric) Status: Acute Plan The patient is having thoracic back pain and initial troponin was less than 0.012 but patient had a delta troponin elevation but was still negative. Unfortunately patient's EKG demonstrated changes in V2 V3 that correlated with patient's increased pain. The patient also was noted to be hypertensive with systolic blood pressures as high as 182/111. ER provider discussed the patient's case with cardiology who recommended patient be started on heparin drip per and nitroglycerin drip. Subsequently patient been admitted to the ICU with assembler leather goods consult. Will titrate nitro drip for blood pressure affect and pain relief. Mole check fasting lipid panel in a.m.. Will administer full-dose aspirin therapy and will start patient on 81 mg aspirin daily. Await further recommendations from Cardiology. Will resume home losartan. Patient does have type 2 diabetes mellitus and is mildly hyperglycemic glucoses of 204. He does not check his glucoses at home. Home metformin is on hold. Will place patient on moderate dose sliding scale insulin with Accu-Cheks q.6 hours while NPO. Hypoglycemia protocol be ordered as needed. Patient's reports that the patient has obstructive sleep apnea but is awaiting a new mask at home because the nasal mask has not been working for him. He is awaiting a full face mask. Will order auto titrating CPAP/BiPAP while hospitalized. MEDICAL DECISION MAKING NARRATIVE -Spoke with the ED provider in detail regarding patient's evaluation, workup and management -Patient seen and examined at bedside -Collaborated with patient's nurse at the bedside in detail and addressed all concerns -Labs, electrolytes, radiology, investigations and test results reviewed -ED/Consult/Nursing/Ancilliary notes on the chart reviewed and appreciated -Spoke with patient/family at the bedside and all questions answered. Quality VTE Prophylaxis VTE prophylaxis: pharmacologic ordered (Heparin drip per protocol) Hospitalist MIPS Advance Care Plan I have confirmed that the patient's Advanced Care Plan is present, code status is documented, or surrogate decision maker is listed in patient medical record.: Yes Medication Reconciliation I have utilized all available resources to obtain, update and review the patients current medications (includes all prescriptions, OTC, herbals, cannabis, and nutritional supplements).: Yes
[2024-11-29] MEDS: LACTATED RINGERS 1,000 ML 125 ML IV CONT (21:21)
--- NOTE | 2024-11-29 21:35 | ECG_ITS ---
Test Date: 2024-11-29 21:28:27 Measurements Intervals [place] Rate: 49 P: 5 HI: 169 QRS: -39 QRSD: 112 T: 155 QT: 506 QTc: 459 Interpretive Statements SINUS BRADYCARDIA WITH OCCASIONAL SUPRAVENTRICULAR PREMATURE COMPLEXES LEFT AXIS DEVIATION [QRS AXIS < -30] LEFT VENTRICULAR HYPERTROPHY AND ST-T CHANGE [VOLTAGE CRITERIA PLUS ST/T ABNORMALITY] Compared to ECG 11/29/2024 19:25:15 heart rate decreased Electronically Signed On 11-30-2024 13:41:55 CDT by Quentin Ortega M.D.
--- NOTE | 2024-11-29 21:48 | PC.NURSE ---
This patient, Armand Carvalho, was admitted to Intensive Care Unit-10. Patient/family oriented to hospital policies and general routines including ID bracelet, bed and alarms, visiting hours, pain management, procedures, bathroom and other care routines, personal items, smoking policy, room service/diet, and visiting hours. Information on how to activate the Rapid Response Team has been discussed. Patient/Family are encouraged to report perceived risks to care and to ask questions if they do not understand what they are told or what they should do.
[2024-11-29 22:17] LABS: MRSA (PCR) NOT DETECTED (NOT DETECTE)
[2024-11-29] MEDS: ASPIRIN 81 MG CHEWABLE TABLET 324 MG PO (22:53)
--- NOTE | 2024-11-29 23:00 | PCRCNOTE ---
Pt does not want Hospital CPAP/BIPAP @ this time
[2024-11-29 23:39] LABS: Troponin I 0.017 ng/mL (0.000-0.034)
[2024-11-30] VITALS (17 sets, daily range): BP systolic 125–156; BP diastolic 71–98; PULSE 53–96; RESP 15–28; TEMP 36.4–37; O2SAT 94–100
[2024-11-30 02:34] LABS: Hematocrit 39.6 % (42.0-52.0); Hemoglobin 13.2 g/dL (14.0-18.0); Immature Granulocyte Percent A 0.2 % (0-0.5); Immature Platelet Fraction Pct 8.3 % (0.9-11.2); Lymphocytes Absolute Auto 2.54 K/mm3 (0.9-3.2); Mean Corpuscular HGB Conc 33.3 g/dl (32-36); Mean Corpuscular Hemoglobin 30.6 pg (26-34); Mean Corpuscular Volume 91.7 fl (80-100); Nucleated Red Blood Cells Absolute Auto 0.000 K/mm3 (0.0-0.012); Nucleated Red Blood Cells Perc 0.0 % (0.0-0.2); Platelet Count Result 144 k/mm3 (150-375); Red Blood Count 4.32 M/mm3 (4.6-6.20); White Blood Count 5.6 K/mm3 (4.5-10.0)
[2024-11-30 02:53] LABS: INR 1.1; Prothrombin Time 14.5 Seconds (11.1-14.7)
[2024-11-30 02:55] LABS: Partial Thromboplastin Time 59.8 Seconds (22.3-36.8)
[2024-11-30 03:04] LABS: Anion Gap 6 mmol/L (4-12); Blood Urea Nitrogen 12 mg/dL (9-20); Calcium 8.5 mg/dL (8.4-10.2); Carbon Dioxide 26 mmol/L (22-30); Chloride 103 mmol/L (98-107); Cholesterol 185 mg/dL (0-200); Estimated CRCL calculation 84 ml/min; Estimated Glomerular Filt Rate > 60; Glucose 139 mg/dL (65-110); HDL Direct 33 mg/dL; Potassium 3.7 mmol/L (3.4-5.0); Sodium 135 mmol/L (137-145); Triglycerides 149 mg/dL (<150)
[2024-11-30] MEDS: LACTATED RINGERS 1,000 ML 125 ML IV CONT (03:22)
[2024-11-30 03:23] LABS: Hemoglobin A1C 7.0 % (<5.7)
--- NOTE | 2024-11-30 08:27 | PC.NURSE ---
Stopped nitro drip per MD order
--- NOTE | 2024-11-30 08:40 | WPDCNINT ---
Assessment and Plan Assessment and plan (1) Anginal equivalent: Code(s): I20.89 - Other forms of angina pectoris Status: Acute Assessment and Plan: Patient presented with right shoulder blade pain. Patient had abnormal EKG although normal troponins. Patient also has risk factor for coronary disease in the form of hypertension and type 2 diabetes CTA negative for PE or dissection Patient was started on nitroglycerin and heparin infusion Serial troponins were done I will discontinue nitroglycerin as patient's blood pressures improved Pain by itself appears to be noncardiac in nature most likely musculoskeletal or pleural Will order p.r.n. ibuprofen, [place] and morphine depending on severity of pain Cardiology has been consulted and will continue heparin until decision is made whether patient will be going for cardiac catheterization Hold beta-krysta due to sinus bradycardia Check echocardiogram Continue aspirin (2) Hypertension: Qualifiers: Hypertension type: primary hypertension Qualified Code(s): I10 - Essential (primary) hypertension Code(s): I10 - Essential (primary) hypertension Status: Acute Assessment and Plan: Continue losartan. Blood pressure is now and adequate range Discontinue nitroglycerin infusion Wound starting beta-krysta due to sinus bradycardia (3) Type 2 diabetes mellitus: Qualifiers: Diabetes mellitus equipment operator intermodal yard insulin use: without equipment operator intermodal yard use Diabetes mellitus complication status: without complication Qualified Code(s): E11.9 - Type 2 diabetes mellitus without complications Code(s): E11.9 - Type 2 diabetes mellitus without complications Status: Acute Assessment and Plan: NPO at this time Add sliding scale Hold metformin (4) Obstructive sleep apnea: Code(s): G47.33 - Obstructive sleep apnea (adult) (pediatric) Status: Acute Assessment and Plan: CPAP port Plan DVT prophylaxis -heparin infusion Stress ulcer prophylaxis -on Protonix Nutrition - NPO Code Status - Full Code Total Critical Care Time - 30 minutes Due to a high probability of clinically significant, life threatening deterioration, the patient required my highest level of preparedness to intervene emergently and I personally spent this critical care time directly and personally managing the patient. This critical care time included obtaining a history; examining the patient; pulse oximetry; ordering and review of studies; arranging urgent treatment with development of a management plan; evaluation of patient's response to treatment; frequent reassessment; and discussions with other providers. It was exclusive of separately billable procedures and treating other patients and teaching time. Please see Assessment and Plan section and the rest of the note for further information on patient assessment and treatment Engagement Director Consult Note Consult date: 11/30/24 Reason for consult: Shoulder blade pain, hypertension HPI: Armand Carvalho is a 58 year old male with past medical history of diabetes type 2, hypertension and obstructive sleep apnea presented to ER yesterday with chief complaint of midthoracic back pain on the right side. Pain started around 10:00 a.m. was 11 out 10 sharp with no radiation but worse with deep breathing and movement. He denies any orthopnea dyspnea on exertion PND fever pain in the chest pain in the abdomen. No dysuria he med to keep easier hematuria melena. All other systems were reviewed and were negative Evaluation ER showed abnormal EKG but negative troponin. He also had elevated blood pressure. Chest CT was done and was negative for PE or dissection. Cardiology was consulted and patient was started on nitroglycerin infusion for blood pressure control and chest pain. Patient also started heparin infusion. Patient was admitted to ICU for further evaluation management. This morning he states his pain is better and rates it at a 4 out 10. The character of the pain is unchanged. His blood pressures improved overnight and he is on minimal dose of nitroglycerin. He denies any other complaints Review of Systems Review of Systems: All systems reviewed & are unremarkable except as noted in HPI and below (HPI) PMFSH Past Medical History Medical History BPH (benign prostatic hyperplasia) Type 2 diabetes mellitus Obstructive sleep apnea Thoracic compression fracture Chronic appearing compression fracture T7 through T9 noted on CT scan 11/29/2024 Erectile dysfunction Vitamin D deficiency Essential hypertension Surgical History Surgical History History of appendectomy Family History Family History Father Fire accident Mother Age older than 80 years Dementia Sibling Gout Son Sudden cardiac Hypertrophic cardiomyopathy Social History Social History Social History: The patient lives with his of 19 years. They have 7 living children their son 16 years old of what sounds like hypertrophic cardiomyopathy during a sporting event. Several of her children are of the age to still live at home. Patient is a lifelong nonsmoker and drinks alcohol a few times a year in moderation. He denies illicit substance use. He works at a company making [employer].. Code status: Full code Surrogate decision maker: Nataliya Carvalho () Smoking status: Never smoker Alcohol intake: current Drinks per week: 1 Substance use: never Substance use type: does not use Do You Feel Safe in your Home?: Yes Lack of Transportation: No Lack of Food: Never True Current Housing: I Have Housing Concerned About Future Housing: Decline to Answer Difficulty Paying Gas/Electric Bills: Decline to Answer Difficulty Paying for Meds: No Currently Unemployed: No Education: Decline to Answer Difficulty w/ Childcare or Family Care: Decline to Answer Spiritual care concerns: No Meds Home Medications and Allergies Home Medications ?Medication ?Instructions ?Recorded ?Confirmed ?Type cyclobenzaprine 10 mg tablet 10 mg PO TID PRN muscle spasm #21 11/29/24 Rx tabs diclofenac potassium 50 mg tablet 50 mg PO TID PRN pain #30 tabs 11/29/24 Rx lidocaine 5 % topical patch 1 patch topical DAILY #15 ea 11/29/24 Rx (Lidoderm) losartan 100 mg tablet 100 mg PO DAILY 11/29/24 11/29/24 History magnesium 200 mg tablet 200 mg PO DAILY 11/29/24 11/29/24 History metformin 500 mg tablet 500 mg PO DAILY 11/29/24 11/29/24 History naproxen sodium 220 mg capsule 440 mg PO DAILY 11/29/24 11/29/24 History (Aleve) prednisone 20 mg tablet 40 mg (2 x 20 mg) PO DAILY 5 days 11/29/24 Rx #10 tabs tadalafil 5 mg tablet 5 mg PO DAILY 11/29/24 11/29/24 History Allergies Allergy/AdvReac Type Severity Reaction Status Date / Time No Known Allergies Allergy Verified 11/29/24 15:21 Vital Signs Vital Signs - 24 hr 11/29/24 15:13 11/29/24 15:32 11/29/24 16:01 Temperature 36.6 C 36.6 C Pulse Rate 74 66 62 Respiratory Rate 18 18 20 Blood Pressure 176/96 H 167/96 H 156/94 H Pulse Oximetry 99 99 95 Oxygen Delivery Room Air 11/29/24 16:47 11/29/24 17:45 11/29/24 19:42 Temperature Pulse Rate 67 66 63 Respiratory Rate 23 H 22 H 18 Blood Pressure 157/91 H 174/103 H Pulse Oximetry 98 98 96 Oxygen Delivery 11/29/24 19:44 11/29/24 20:02 11/29/24 20:12 Temperature Pulse Rate 65 60 52 L Respiratory Rate 24 H 18 Blood Pressure 174/103 H 173/102 H 173/102 H Pulse Oximetry 96 97 Oxygen Delivery 11/29/24 20:17 11/29/24 20:31 11/29/24 20:33 Temperature Pulse Rate 60 59 L 57 L Respiratory Rate 21 H 28 H Blood Pressure 165/123 H 182/111 H 182/111 H Pulse Oximetry 99 98 Oxygen Delivery 11/29/24 20:34 11/29/24 20:50 11/29/24 20:53 Temperature Pulse Rate 59 L 56 L 53 L Respiratory Rate 25 H 23 H Blood Pressure 174/103 H Pulse Oximetry 98 98 Oxygen Delivery 11/29/24 20:56 11/29/24 21:00 11/29/24 21:02 Temperature Pulse Rate 65 54 L 53 L Respiratory Rate 27 H 22 H Blood Pressure 173/103 H Pulse Oximetry 98 98 Oxygen Delivery 11/29/24 21:18 11/29/24 22:00 11/29/24 22:00 Temperature Pulse Rate 49 L 53 L Respiratory Rate 21 H 16 Blood Pressure 162/100 H Pulse Oximetry 100 98 Oxygen Delivery Room Air 11/29/24 22:00 11/29/24 22:04 11/29/24 22:57 Temperature Pulse Rate 53 L 47 L 50 L Respiratory Rate Blood Pressure 162/100 H 135/86 Pulse Oximetry Oxygen Delivery 11/30/24 00:00 11/30/24 00:00 11/30/24 00:00 Temperature Pulse Rate 53 L 53 L Respiratory Rate Blood Pressure 137/87 Pulse Oximetry Oxygen Delivery Room Air 11/30/24 00:00 11/30/24 02:00 11/30/24 02:00 Temperature 36.9 C Pulse Rate 53 L 55 L 64 Respiratory Rate 19 15 Blood Pressure 137/87 156/84 H Pulse Oximetry 97 96 Oxygen Delivery 11/30/24 02:00 11/30/24 04:00 11/30/24 04:00 Temperature Pulse Rate 64 67 Respiratory Rate Blood Pressure 156/84 H Pulse Oximetry Oxygen Delivery Room Air 11/30/24 04:00 11/30/24 04:08 11/30/24 05:59 Temperature 36.8 C Pulse Rate 58 L 56 L 55 L Respiratory Rate 17 Blood Pressure 148/78 H 137/77 Pulse Oximetry 96 Oxygen Delivery 11/30/24 05:59 11/30/24 06:01 11/30/24 08:00 Temperature 36.4 C Pulse Rate 55 L 55 L 64 Respiratory Rate 24 H 17 Blood Pressure 135/83 135/83 125/82 Pulse Oximetry 95 94 Oxygen Delivery 11/30/24 08:26 Temperature Pulse Rate 54 L Respiratory Rate Blood Pressure 127/71 Pulse Oximetry Oxygen Delivery Exam Narrative: General: Pt is alert awake and in NAD Lungs/Chest: Trachea central Clear BS B/L, No crackles or wheezing. Cardiac: RRR. Normal S1 S2. No murmurs Circulation: Pedal pulses are intact and symmetrical. Abdomen: Normal bowel sounds.. Soft. NT. ND. Extremities: No clubbing, cyanosis or edema. Warm : Prince in place Neurologic: Follows commands. Moves all 4 extremities PERRL Skin: No Rash MSK: No Tenderness on lateral aspect of spine on the right side with deep palpation at the site of pain. Patient states the pain is worse when he takes deep breath or moves Results Labs 11/30/24 02:26 11/30/24 02:26 Labs: Impressions Chest X-Ray 11/29/24 15:56 IMPRESSION: No acute cardiopulmonary process. Acute versus chronic mild height loss at T8-T10. Chest CTA 11/29/24 18:41 IMPRESSION: No CT evidence of acute pulmonary embolus. No acute process detected in the chest. Short CBC 11/29/24 11/30/24 Range/Units 15:32 02:26 WBC 6.3 5.6 (4.5-10.0) K/mm3 Hgb 14.9 13.2 L (14.0-18.0) g/dL Hct 45.4 39.6 L (42.0-52.0) % Plt Count 150 144 L (150-375) k/mm3 BMP 11/29/24 11/30/24 15:32 02:26 Sodium 138 135 L Potassium 3.6 3.7 Chloride 101 103 Carbon Dioxide 28 26 BUN 14 12 Creatinine 1.08 1.05 Glucose 204 H 139 H Calcium 8.8 8.5 Cardiac Enzymes 11/29/24 11/29/24 11/29/24 Range/Units 15:32 18:39 23:09 Troponin I 0.013 0.027 D 0.017 D (0.000-0.034) ng/mL Liver Function 11/29/24 Range/Units 15:32 Total Bilirubin 0.6 (0.2-1.3) mg/dL AST 25 (17-59) U/L ALT 24 (6-50) U/L Alkaline Phosphatase 66 (38-126) U/L Albumin 4.0 (3.5-5.1) g/dL ECG Interpretation: Most recent EKG shows sinus bradycardia with left axis deviation and left ventricular hypertrophy and ST-T changes Quality VTE Prophylaxis VTE prophylaxis: pharmacologic ordered Hospitalist MIPS Advance Care Plan I have confirmed that the patient's Advanced Care Plan is present, code status is documented, or surrogate decision maker is listed in patient medical record.: Yes Medication Reconciliation I have utilized all available resources to obtain, update and review the patients current medications (includes all prescriptions, OTC, herbals, cannabis, and nutritional supplements).: Yes
[2024-11-30] MEDS: MAGNESIUM OXIDE 200 MG TABLET PO (08:41)
[2024-11-30] MEDS: ASPIRIN 81 MG ENTERIC TABLET PO (08:41)
[2024-11-30] MEDS: LOSARTAN POTASSIUM 100 MG TABLET PO (08:41)
[2024-11-30 09:19] LABS: Partial Thromboplastin Time 88.2 Seconds (22.3-36.8)
--- NOTE | 2024-11-30 13:06 | PM.CNCAR ---
Assessment and Plan Assessment and plan (1) Hypertension: Qualifiers: Hypertension type: primary hypertension Qualified Code(s): I10 - Essential (primary) hypertension Code(s): I10 - Essential (primary) hypertension Status: Acute (2) ST segment changes on electrocardiogram: Code(s): R94.31 - Abnormal electrocardiogram [ECG] [EKG] Status: Acute Plan Back pain reproducible likely musculoskeletal Hypertensive urgency on presentation currently controlled of nitroglycerin drip EKG changes consistent with LVH Diabetes mellitus type 2 Plan Transthoracic echocardiogram Losartan 100 mg daily Hydrochlorothiazide 25 mg daily Add amlodipine 5 mg daily History of Present Illness History of Present Illness Consult date/time: 11/30/24 13:06 Reason For Visit: Dynamic T-wave inversions, Chest, Back pain, [place] Narrative: 58-year-old male patient presents to the hospital was mid back pain. Back pain started few days ago has been getting worse. Back pain was worse was deep breathing and movement. Patient has no prior similar episodes in the past. When arrival to the ED was found to have EKG changes concerning for coronary artery disease. He was also noted to have elevated blood pressures the nodule was some drip was control blood pressure number when the symptoms. He has history of diabetes mellitus under control with metformin and history of 60 sleep apnea. Patient has history of hypertension has been poorly controlled Review of Systems Review of Systems: All systems reviewed & are unremarkable except as noted in HPI and below PMFSH Past Medical History Medical History BPH (benign prostatic hyperplasia) Type 2 diabetes mellitus Obstructive sleep apnea Thoracic compression fracture Chronic appearing compression fracture T7 through T9 noted on CT scan 11/29/2024 Erectile dysfunction Vitamin D deficiency Essential hypertension Surgical History Surgical History History of appendectomy Family History Family History Father Fire accident Mother Age older than 80 years Dementia Sibling Gout Son Sudden cardiac Hypertrophic cardiomyopathy Social History Social History Social History: The patient lives with his of 19 years. They have 7 living children their son 16 years old of what sounds like hypertrophic cardiomyopathy during a sporting event. Several of her children are of the age to still live at home. Patient is a lifelong nonsmoker and drinks alcohol a few times a year in moderation. He denies illicit substance use. 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 Code status: Full code Surrogate decision maker: Naatliya Carvalho () Smoking status: Never smoker Alcohol intake: current Drinks per week: 1 Substance use: never Substance use type: does not use Do You Feel Safe in your Home?: Yes Lack of Transportation: No Lack of Food: Never True Current Housing: I Have Housing Concerned About Future Housing: Decline to Answer Difficulty Paying Gas/Electric Bills: Decline to Answer Difficulty Paying for Meds: No Currently Unemployed: No Education: Decline to Answer Difficulty w/ Childcare or Family Care: Decline to Answer Spiritual care concerns: No Meds Home Medications and Allergies Home Medications ?Medication ?Instructions ?Recorded ?Confirmed ?Type cyclobenzaprine 10 mg tablet 10 mg PO TID PRN muscle spasm #21 11/29/24 Rx tabs diclofenac potassium 50 mg tablet 50 mg PO TID PRN pain #30 tabs 11/29/24 Rx lidocaine 5 % topical patch 1 patch topical DAILY #15 ea 11/29/24 Rx (Lidoderm) losartan 100 mg tablet 100 mg PO DAILY 11/29/24 11/29/24 History magnesium 200 mg tablet 200 mg PO DAILY 11/29/24 11/29/24 History metformin 500 mg tablet 500 mg PO DAILY 11/29/24 11/29/24 History naproxen sodium 220 mg capsule 440 mg PO DAILY 11/29/24 11/29/24 History (Aleve) prednisone 20 mg tablet 40 mg (2 x 20 mg) PO DAILY 5 days 11/29/24 Rx #10 tabs tadalafil 5 mg tablet 5 mg PO DAILY 11/29/24 11/29/24 History Allergies Allergy/AdvReac Type Severity Reaction Status Date / Time No Known Allergies Allergy Verified 11/29/24 15:21 Vital Signs Vital Signs - 24 hr 11/29/24 15:13 11/29/24 15:32 11/29/24 16:01 Temperature 36.6 C 36.6 C Pulse Rate 74 66 62 Respiratory Rate 18 18 20 Blood Pressure 176/96 H 167/96 H 156/94 H Pulse Oximetry 99 99 95 Oxygen Delivery Room Air 11/29/24 16:47 11/29/24 17:45 11/29/24 19:42 Temperature Pulse Rate 67 66 63 Respiratory Rate 23 H 22 H 18 Blood Pressure 157/91 H 174/103 H Pulse Oximetry 98 98 96 Oxygen Delivery 11/29/24 19:44 11/29/24 20:02 11/29/24 20:12 Temperature Pulse Rate 65 60 52 L Respiratory Rate 24 H 18 Blood Pressure 174/103 H 173/102 H 173/102 H Pulse Oximetry 96 97 Oxygen Delivery 11/29/24 20:17 11/29/24 20:31 11/29/24 20:33 Temperature Pulse Rate 60 59 L 57 L Respiratory Rate 21 H 28 H Blood Pressure 165/123 H 182/111 H 182/111 H Pulse Oximetry 99 98 Oxygen Delivery 11/29/24 20:34 11/29/24 20:50 11/29/24 20:53 Temperature Pulse Rate 59 L 56 L 53 L Respiratory Rate 25 H 23 H Blood Pressure 174/103 H Pulse Oximetry 98 98 Oxygen Delivery 11/29/24 20:56 11/29/24 21:00 11/29/24 21:02 Temperature Pulse Rate 65 54 L 53 L Respiratory Rate 27 H 22 H Blood Pressure 173/103 H Pulse Oximetry 98 98 Oxygen Delivery 11/29/24 21:18 11/29/24 22:00 11/29/24 22:00 Temperature Pulse Rate 49 L 53 L Respiratory Rate 21 H 16 Blood Pressure 162/100 H Pulse Oximetry 100 98 Oxygen Delivery Room Air 11/29/24 22:00 11/29/24 22:04 11/29/24 22:57 Temperature Pulse Rate 53 L 47 L 50 L Respiratory Rate Blood Pressure 162/100 H 135/86 Pulse Oximetry Oxygen Delivery 11/30/24 00:00 11/30/24 00:00 11/30/24 00:00 Temperature Pulse Rate 53 L 53 L Respiratory Rate Blood Pressure 137/87 Pulse Oximetry Oxygen Delivery Room Air 11/30/24 00:00 11/30/24 02:00 11/30/24 02:00 Temperature 36.9 C Pulse Rate 53 L 55 L 64 Respiratory Rate 19 15 Blood Pressure 137/87 156/84 H Pulse Oximetry 97 96 Oxygen Delivery 11/30/24 02:00 11/30/24 04:00 11/30/24 04:00 Temperature Pulse Rate 64 67 Respiratory Rate Blood Pressure 156/84 H Pulse Oximetry Oxygen Delivery Room Air 11/30/24 04:00 11/30/24 04:08 11/30/24 05:59 Temperature 36.8 C Pulse Rate 58 L 56 L 55 L Respiratory Rate 17 Blood Pressure 148/78 H 137/77 Pulse Oximetry 96 Oxygen Delivery 11/30/24 05:59 11/30/24 06:01 11/30/24 08:00 Temperature 36.4 C Pulse Rate 55 L 55 L 64 Respiratory Rate 24 H 17 Blood Pressure 135/83 135/83 125/82 Pulse Oximetry 95 94 Oxygen Delivery 11/30/24 08:00 11/30/24 08:00 11/30/24 08:26 Temperature Pulse Rate 76 64 54 L Respiratory Rate Blood Pressure 125/82 127/71 Pulse Oximetry Oxygen Delivery 11/30/24 10:00 11/30/24 10:00 11/30/24 10:00 Temperature Pulse Rate 61 61 61 Respiratory Rate 24 H Blood Pressure 133/87 133/87 Pulse Oximetry 95 Oxygen Delivery 11/30/24 12:00 11/30/24 12:00 Temperature 36.9 C Pulse Rate 69 71 Respiratory Rate 23 H Blood Pressure 153/98 H Pulse Oximetry 99 Oxygen Delivery Exam Narrative: General: Pt is alert awake and in NAD Lungs/Chest: Trachea central Clear BS B/L, No crackles or wheezing. Cardiac: RRR. Normal S1 S2. No murmurs Circulation: Pedal pulses are intact and symmetrical. Abdomen: Normal bowel sounds.. Soft. NT. ND. Extremities: No clubbing, cyanosis or edema. Warm : Prince in place Neurologic: Follows commands. Moves all 4 extremities PERRL Skin: No Rash MSK: No Tenderness on lateral aspect of spine on the right side with deep palpation at the site of pain. Patient states the pain is worse when he takes deep breath or moves Results Labs and Meds 11/30/24 02:26 11/30/24 02:26 Lab results: Cardiac Enzymes 11/29/24 11/29/24 11/29/24 Range/Units 15:32 18:39 23:09 AST 25 (17-59) U/L Troponin I 0.013 0.027 D 0.017 D (0.000-0.034) ng/mL Coagulation 11/29/24 11/30/24 11/30/24 Range/Units 15:32 02:26 08:58 PT 13.6 14.5 (11.1-14.7) Seconds APTT 30.9 59.8 H 88.2 H (22.3-36.8) Seconds Lipids 11/30/24 Range/Units 02:26 Triglycerides 149 (<150) mg/dL Cholesterol 185 (0-200) mg/dL CBC 11/29/24 11/30/24 Range/Units 15:32 02:26 WBC 6.3 5.6 (4.5-10.0) K/mm3 RBC 4.91 4.32 L (4.6-6.20) M/mm3 Hgb 14.9 13.2 L (14.0-18.0) g/dL Hct 45.4 39.6 L (42.0-52.0) % Plt Count 150 144 L (150-375) k/mm3 Lymph # (Auto) 2.22 2.54 (0.9-3.2) K/mm3 [place] # (Auto) 0.8 H 0.6 (0.1-0.6) K/mm3 Eos # (Auto) 0.1 0.0 (0-0.3) K/mm3 Baso # (Auto) 0.0 0.0 (0.0-0.1) K/mm3 Comprehensive Metabolic Panel 11/29/24 11/30/24 Range/Units 15:32 02:26 Sodium 138 135 L (137-145) mmol/L Potassium 3.6 3.7 (3.4-5.0) mmol/L Chloride 101 103 (98-107) mmol/L Carbon Dioxide 28 26 (22-30) mmol/L BUN 14 12 (9-20) mg/dL Creatinine 1.08 1.05 (0.7-1.3) mg/dL Glucose 204 H 139 H (65-110) mg/dL Calcium 8.8 8.5 (8.4-10.2) mg/dL AST 25 (17-59) U/L ALT 24 (6-50) U/L Alkaline Phosphatase 66 (38-126) U/L Total Protein 7.8 (6.3-8.2) g/dL Albumin 4.0 (3.5-5.1) g/dL Intake and Output 11/29/24 11/30/24 11/30/24 23:59 07:59 15:59 Intake Total 15.4 884.4 334.3 Output Total 550 Balance 15.4 334.4 334.3 Intake: IV 15.4 884.4 94.3 Heparin Sod/D5w 100 Units/ml 25 68.7 72.6 ,000 units In 250 ml @ 1,200 UNITS/HR 12 mls/hr IV CONT . [id number] YAMILE Rx#:[id number] Lactated Ringers 1,000 ml @ 125 752.1 mls/hr IV CONT .Q8H [facility] Rx#: [id number] Nitroglycerin/D5w 200 Mcg/ml 50 15.4 63.6 21.7 mg In 250 ml @ 30 MCG/MIN 9 mls/hr IV CONT .Q24H [facility] Rx#: [id number] Oral 240 Output: Urine 550 Patient Weight 11/30/24 23:59 Weight 101.4 kg
[2024-11-30] MEDS: HYDROcodone/acetaminophen (*CRX) 5-325 MG TABLET 1 TAB PO ×2 (13:20→17:56)
--- NOTE | 2024-11-30 13:45 | PC.NURSE ---
This patient, Armand Carvalho, was transferred to [facility] on 11/30/24 at 1312. Personal belongings sent with patient. Report given to Sharon. Appropriate documentation sent with patient.
--- NOTE | 2024-11-30 14:28 | PM.IMPN ---
Progress Note: A&P Assessment and Plan (1) Anginal equivalent: Code(s): I20.89 - Other forms of angina pectoris Status: Acute (2) ST segment changes on electrocardiogram: Code(s): R94.31 - Abnormal electrocardiogram [ECG] [EKG] Status: Acute (3) Pain in right paraspinal region: Code(s): M54.9 - Dorsalgia, unspecified Status: Acute (4) Hypertension: Qualifiers: Hypertension type: primary hypertension Qualified Code(s): I10 - Essential (primary) hypertension Code(s): I10 - Essential (primary) hypertension Status: Acute (5) Type 2 diabetes mellitus: Qualifiers: Diabetes mellitus long term care pharmacist insulin use: without correction use Diabetes mellitus complication status: without complication Qualified Code(s): E11.9 - Type 2 diabetes mellitus without complications Code(s): E11.9 - Type 2 diabetes mellitus without complications Status: Acute (6) Obstructive sleep apnea: Code(s): G47.33 - Obstructive sleep apnea (adult) (pediatric) Status: Acute Plan The patient is having thoracic back pain and initial troponin was less than 0.012 but patient had a delta troponin elevation but was still negative. Unfortunately patient's EKG demonstrated changes in V2 V3 that correlated with patient's increased pain. The patient also was noted to be hypertensive with systolic blood pressures as high as 182/111. ER provider discussed the patient's case with cardiology who recommended patient be started on heparin drip per and nitroglycerin drip. Subsequently patient been admitted to the ICU with stopperer assembler consult. Will titrate nitro drip for blood pressure affect and pain relief. Mole check fasting lipid panel in a.m.. Will administer full-dose aspirin therapy and will start patient on 81 mg aspirin daily. Await further recommendations from Cardiology. Will resume home losartan. Patient does have type 2 diabetes mellitus and is mildly hyperglycemic glucoses of 204. He does not check his glucoses at home. Home metformin is on hold. Will place patient on moderate dose sliding scale insulin with Accu-Cheks q.6 hours while NPO. Hypoglycemia protocol be ordered as needed. Patient's reports that the patient has obstructive sleep apnea but is awaiting a new mask at home because the nasal mask has not been working for him. He is awaiting a full face mask. Will order auto titrating CPAP/BiPAP while hospitalized. 58 y/o male with history of htn, presented with severe sudden onset of upper back pain, patient stats pain was so severe he was not able tolerate and came to the ER, upon arrival to the ER with upper back pain, patient BP was significantly elevated and there were some acute changes on his EKG, the instructional systems designer review patient EKG and recommended to start patient on heparin and nitroglycerine, patient was admitted to the ICU. today patient stats he feeling much better and denies any upper back or chest pain. will be seen by the instructional systems designer and further recommendation to follow. MEDICAL DECISION MAKING NARRATIVE -Spoke with the ED provider in detail regarding patient's evaluation, workup and management -Patient seen and examined at bedside -Collaborated with patient's nurse at the bedside in detail and addressed all concerns -Labs, electrolytes, radiology, investigations and test results reviewed -ED/Consult/Nursing/Ancilliary notes on the chart reviewed and appreciated -Spoke with patient/family at the bedside and all questions answered. Subjective Date/time seen: 11/30/24 14:28 Interval history: Mid back pain Narrative: 58-year-old male with a past medical history of essential hypertension, type 2 diabetes mellitus on metformin, erectile dysfunction and obstructive sleep apnea who presented to the ER with midthoracic back pain that started yesterday. The patient reports that he was at 6 flags yesterday. Around 10:00 he started having pain in his right thoracic region. On palpation of the area patient does have reproducible pain. He reports pain is worse with deep breathing and sudden movements. He denies any cough her recent lifting or pulling beyond what he would usually do. He reports shortness of breath only because the pain is worse with deep breathing. He denies any dyspnea on exertion. He has not had any cough or congestion, fevers or chills. His reports that the patient has been told in the past he has a ?enlarged heart?. In patient had a stress test greater than 5 years ago that was negative. The stress test was performed in [place]. He has had a history of irregular heartbeats and is EKG in the ER did demonstrate sinus arrhythmia and PVCs. He denies any history of AFib. He has not had any lower extremity swelling orthopnea or paroxysmal nocturnal dyspnea. He does not have a family history of heart disease. He was initially treated in the ER with [place], lidocaine patch, muscle relaxers and Protonix. Despite these measures the patient was still having pain that he reports was a 11/10 in intensity. His repeat troponin went from 0.01 to up to 0.027. With his repeat EKG demonstrated new ST T-wave changes in V2 V3 and inversions in V4 5 and 6. The ER provider discussed patient's case with the scrap crane operator who did not see evidence of STEMI and subsequently the non scrap crane operator recommended that the patient be started on heparin and nitroglycerin. The patient reports that after he was started on the nitroglycerin his pain decreased significantly down to 6/10 in intensity where he had had no improvement previous. He is 6 hour EKG demonstrated persistent changes in lateral eat and repeat troponin is pending on the time of patient's arrival to the ICU. 58 y/o male with history of htn, presented with severe sudden onset of upper back pain, patient stats pain was so severe he was not able tolerate and came to the ER, upon arrival to the ER with upper back pain, patient BP was significantly elevated and there were some acute changes on his EKG, the instructional systems designer review patient EKG and recommended to start patient on heparin and nitroglycerine, patient was admitted to the ICU. today patient stats he feeling much better and denies any upper back or chest pain. will be seen by the instructional systems designer and further recommendation to follow. Review of Systems Review of Systems: 12 systems were reviewed with pertinent positives and negatives per HPI. Except as documented in the HPI, all other systems were reviewed and are negative. His reports that the patient has had increased urinary urgency and he reports he has been having weak urinary stream with hesitancy. Exam Narrative: Patient is comfortable, NAD HEENT: eyes are clear and none icteric LUNGS:CTA HEART: RR S1S2 ABD: BS+, Soft and nontender Lower extremities: no edema SKIN: nonjaundiced Neuro: grossly intact. Objective Data Vital Signs Vital Signs: Vital Signs - 24 hr 11/29/24 15:13 11/29/24 15:32 11/29/24 16:01 Temperature 36.6 C 36.6 C Pulse Rate 74 66 62 Respiratory Rate 18 18 20 Blood Pressure 176/96 H 167/96 H 156/94 H Pulse Oximetry 99 99 95 Oxygen Delivery Room Air 11/29/24 16:47 11/29/24 17:45 11/29/24 19:42 Temperature Pulse Rate 67 66 63 Respiratory Rate 23 H 22 H 18 Blood Pressure 157/91 H 174/103 H Pulse Oximetry 98 98 96 Oxygen Delivery 11/29/24 19:44 11/29/24 20:02 11/29/24 20:12 Temperature Pulse Rate 65 60 52 L Respiratory Rate 24 H 18 Blood Pressure 174/103 H 173/102 H 173/102 H Pulse Oximetry 96 97 Oxygen Delivery 11/29/24 20:17 11/29/24 20:31 11/29/24 20:33 Temperature Pulse Rate 60 59 L 57 L Respiratory Rate 21 H 28 H Blood Pressure 165/123 H 182/111 H 182/111 H Pulse Oximetry 99 98 Oxygen Delivery 11/29/24 20:34 11/29/24 20:50 11/29/24 20:53 Temperature Pulse Rate 59 L 56 L 53 L Respiratory Rate 25 H 23 H Blood Pressure 174/103 H Pulse Oximetry 98 98 Oxygen Delivery 11/29/24 20:56 11/29/24 21:00 11/29/24 21:02 Temperature Pulse Rate 65 54 L 53 L Respiratory Rate 27 H 22 H Blood Pressure 173/103 H Pulse Oximetry 98 98 Oxygen Delivery 11/29/24 21:18 11/29/24 22:00 11/29/24 22:00 Temperature Pulse Rate 49 L 53 L Respiratory Rate 21 H 16 Blood Pressure 162/100 H Pulse Oximetry 100 98 Oxygen Delivery Room Air 11/29/24 22:00 11/29/24 22:04 11/29/24 22:57 Temperature Pulse Rate 53 L 47 L 50 L Respiratory Rate Blood Pressure 162/100 H 135/86 Pulse Oximetry Oxygen Delivery 11/30/24 00:00 11/30/24 00:00 11/30/24 00:00 Temperature Pulse Rate 53 L 53 L Respiratory Rate Blood Pressure 137/87 Pulse Oximetry Oxygen Delivery Room Air 11/30/24 00:00 11/30/24 02:00 11/30/24 02:00 Temperature 36.9 C Pulse Rate 53 L 55 L 64 Respiratory Rate 19 15 Blood Pressure 137/87 156/84 H Pulse Oximetry 97 96 Oxygen Delivery 11/30/24 02:00 11/30/24 04:00 11/30/24 04:00 Temperature Pulse Rate 64 67 Respiratory Rate Blood Pressure 156/84 H Pulse Oximetry Oxygen Delivery Room Air 11/30/24 04:00 11/30/24 04:08 11/30/24 05:59 Temperature 36.8 C Pulse Rate 58 L 56 L 55 L Respiratory Rate 17 Blood Pressure 148/78 H 137/77 Pulse Oximetry 96 Oxygen Delivery 11/30/24 05:59 11/30/24 06:01 11/30/24 08:00 Temperature 36.4 C Pulse Rate 55 L 55 L 64 Respiratory Rate 24 H 17 Blood Pressure 135/83 135/83 125/82 Pulse Oximetry 95 94 Oxygen Delivery 11/30/24 08:00 11/30/24 08:00 11/30/24 08:26 Temperature Pulse Rate 76 64 54 L Respiratory Rate Blood Pressure 125/82 127/71 Pulse Oximetry Oxygen Delivery 11/30/24 10:00 11/30/24 10:00 11/30/24 10:00 Temperature Pulse Rate 61 61 61 Respiratory Rate 24 H Blood Pressure 133/87 133/87 Pulse Oximetry 95 Oxygen Delivery 11/30/24 12:00 11/30/24 12:00 11/30/24 13:43 Temperature 36.9 C 36.9 C Pulse Rate 69 71 62 Respiratory Rate 23 H 20 Blood Pressure 153/98 H 151/84 H Pulse Oximetry 99 100 Oxygen Delivery 11/30/24 14:00 Temperature Pulse Rate 96 Respiratory Rate Blood Pressure Pulse Oximetry Oxygen Delivery Intake/Output Intake/Output: Intake & Output 11/27/24 11/28/24 11/29/24 11/30/24 23:59 23:59 23:59 23:59 Intake Total 15.4 1218.7 Output Total 550 Balance 15.4 668.7 Meds/Results Medications: Active Medications Generic Name Dose Route Start Last Admin Trade Name Freq PRN Reason Stop Dose Admin Acetaminophen 650 mg 11/29/24 20:52 Acetaminophen 325 Mg Tablet PO Q4H PRN Mild Pain (1-3) or Fever Hydrocodone Bitart/Acetaminophen 1 tab 11/30/24 08:39 11/30/24 13:20 Hydrocodone/Acetaminophen (*Crx) 5-325 Mg Tablet PO 1 tab Q4H PRN Administration Pain Rated 4-6 Aspirin 81 mg 11/30/24 09:00 11/30/24 08:41 Aspirin 81 Mg Enteric Tablet PO 81 mg QAM YAMILE Administration Dextrose 12.5 gm 11/30/24 08:38 Dextrose 50% 25 Gm/50 Ml Syringe IV PUSH PRN PRN Hypoglycemia Protocol Enoxaparin Sodium 40 mg 11/30/24 14:00 11/30/24 12:40 Enoxaparin 40 Mg/0.4 Ml Syringe SUB-Q Not Given DAILY YAMILE Glucagon 1 mg 11/30/24 08:38 Glucagon For Inj 1 Mg Vial IM PRN PRN Hypoglycemia Protocol Glucose 15 gm 11/30/24 08:38 Glucose Oral Gel 15 Gm Of Glucse In 37.5 Gm Tube PO PRN PRN Hypoglycemia Protocol Hydralazine HCl 20 mg 11/30/24 08:46 Hydralazine Hcl 20 Mg/Ml Vial IV PUSH Q4H PRN SBP more than 160 Dextrose 1,000 mls @ 100 mls/hr 11/30/24 08:38 Dextrose 5% 1,000 Ml IVPB PRN PRN Hypoglycemia Protocol Ibuprofen 400 mg 11/30/24 08:39 Ibuprofen 400 Mg Tablet PO Q4H PRN Pain Rated 1-3 Insulin Aspart 3 - 6 units 11/30/24 12:00 11/30/24 12:12 Insulin Aspart (*Bkc) 100 Units/Ml SUB-Q Not Given Q6HR [facility] Protocol Losartan Potassium 100 mg 11/30/24 09:00 11/30/24 08:41 Losartan Potassium 100 Mg Tablet PO 100 mg DAILY YAMILE Administration Magnesium Oxide 200 mg 11/30/24 09:00 11/30/24 08:41 Magnesium Oxide 200 Mg Tablet PO 200 mg DAILY YAMILE Administration Morphine Sulfate 2 mg 11/30/24 08:39 Morphine Sulfate (*Crx) 2 Mg/Ml Inj IV PUSH Q2H PRN Pain Rated 7-10 Ondansetron HCl 4 mg 11/29/24 20:52 Ondansetron Inj 4 Mg/2 Ml Vial IV PUSH Q4H PRN Nausea Perflutren Lipid Microsphere 0 ml 11/30/24 08:40 Perflutren Lipid Microspheres 1.5 Ml Vial Diluted To 10 Ml Total Volume IV PUSH 12/03/24 08:40 ONCE PRN adequate visualization Protocol Radiology Results: ITS Impressions Chest X-Ray 11/29/24 15:56 IMPRESSION: No acute cardiopulmonary process. Acute versus chronic mild height loss at T8-T10. Chest CTA 11/29/24 18:41 IMPRESSION: No CT evidence of acute pulmonary embolus. No acute process detected in the chest. Labs Labs: Laboratory Results - last 24 hr 11/29/24 11/29/24 11/29/24 15:32 18:39 20:56 WBC 6.3 RBC 4.91 Hgb 14.9 Hct 45.4 MCV 92.5 MCH 30.3 MCHC 32.8 RDW 13.1 Plt Count 150 MPV 11.6 H Immature Gran % (Auto) 0.5 Neut % (Auto) 50.6 Lymph % (Auto) 35.4 Whitley % (Auto) 12.1 H Eos % (Auto) 0.8 Baso % (Auto) 0.6 Lymph # (Auto) 2.22 Whitley # (Auto) 0.8 H Eos # (Auto) 0.1 Baso # (Auto) 0.0 Abs Immat Gran (auto) 0.03 Absolute Neuts (auto) 3.2 Absolute Nucleated RBC 0.000 Nucleated RBC % 0.0 % Immature Plt Fraction PT 13.6 INR 1.0 APTT 30.9 Sodium 138 Potassium 3.6 Chloride 101 Carbon Dioxide 28 Anion Gap 9 BUN 14 Creatinine 1.08 Estim Creat Clear Calc 82 Estimated GFR > 60 Glucose 204 H POC Capillary Glucose Hemoglobin A1c Calcium 8.8 Total Bilirubin 0.6 AST 25 ALT 24 Alkaline Phosphatase 66 Troponin I 0.013 0.027 D NT-Pro-B Natriuret Pep 127 H Total Protein 7.8 Albumin 4.0 Triglycerides Cholesterol LDL Cholesterol Direct HDL Direct Nasal MRSA (PCR) Not detected 11/29/24 11/30/24 11/30/24 23:09 02:26 08:58 WBC 5.6 RBC 4.32 L Hgb 13.2 L Hct 39.6 L MCV 91.7 MCH 30.6 MCHC 33.3 RDW 13.0 Plt Count 144 L MPV 11.5 H Immature Gran % (Auto) 0.2 Neut % (Auto) 42.6 L Lymph % (Auto) 45.6 H Whitley % (Auto) 10.2 H Eos % (Auto) 0.7 Baso % (Auto) 0.7 Lymph # (Auto) 2.54 Whitley # (Auto) 0.6 Eos # (Auto) 0.0 Baso # (Auto) 0.0 Abs Immat Gran (auto) 0.01 Absolute Neuts (auto) 2.4 Absolute Nucleated RBC 0.000 Nucleated RBC % 0.0 % Immature Plt Fraction 8.3 PT 14.5 INR 1.1 APTT 59.8 H 88.2 H Sodium 135 L Potassium 3.7 Chloride 103 Carbon Dioxide 26 Anion Gap 6 BUN 12 Creatinine 1.05 Estim Creat Clear Calc 84 Estimated GFR > 60 Glucose 139 H POC Capillary Glucose Hemoglobin A1c 7.0 H Calcium 8.5 Total Bilirubin AST ALT Alkaline Phosphatase Troponin I 0.017 D NT-Pro-B Natriuret Pep Total Protein Albumin Triglycerides 149 Cholesterol 185 LDL Cholesterol Direct 106 HDL Direct 33 Nasal MRSA (PCR) 11/30/24 12:09 WBC RBC Hgb Hct MCV MCH MCHC RDW Plt Count MPV Immature Gran % (Auto) Neut % (Auto) Lymph % (Auto) Whitley % (Auto) Eos % (Auto) Baso % (Auto) Lymph # (Auto) Whitley # (Auto) Eos # (Auto) Baso # (Auto) Abs Immat Gran (auto) Absolute Neuts (auto) Absolute Nucleated RBC Nucleated RBC % % Immature Plt Fraction PT INR APTT Sodium Potassium Chloride Carbon Dioxide Anion Gap BUN Creatinine Estim Creat Clear Calc Estimated GFR Glucose POC Capillary Glucose 122 H Hemoglobin A1c Calcium Total Bilirubin AST ALT Alkaline Phosphatase Troponin I NT-Pro-B Natriuret Pep Total Protein Albumin Triglycerides Cholesterol LDL Cholesterol Direct HDL Direct Nasal MRSA (PCR) Quality VTE Prophylaxis VTE prophylaxis: pharmacologic ordered
[2024-12-01] VITALS (18 sets, daily range): BP systolic 150–173; BP diastolic 62–100; PULSE 63–95; RESP 17–22; TEMP 36.8–37; O2SAT 97–100
--- NOTE | 2024-12-01 | ECHO_ITS ---
Patient Info Name: Armand Carvalho Age: 58 years : 1965 Gender: Male Ht: 71 in Wt: 223 lbs BSA: 2.28 m2 HR: 74 bpm BP: 159 / 96 mmHg Technical Quality: Good Exam Date: 12/01/2024 10:24 AM Patient Status: I Admit Date: 11/29/2024 Exam Type: CA echo doppler color flow Complete two-dimensional, color flow and Doppler transthoracic echocardiogram is performed. Staff Referring Physician: Bairon Keenan MD Virology Teacher: Silvana Fagan Attending Provider: Ashlee Urbina DO Summary 1. Complete two-dimensional, color flow and Doppler transthoracic echocardiogram is performed. 2. Left ventricular systolic function is normal, estimated at 60-65. 3. There is mildly increased left ventricular wall thickness. 4. The left ventricular diastolic function is grade II diastolic dysfunction. 5. There is mild tricuspid valve regurgitation. 6. Mild pulmonary hypertension, estimated pulmonary arterial systolic pressure is 35 mmHg. 7. There is mild pulmonic regurgitation. 8. The aortic root size at the sinus of Valsalva is normal. 9. The prox ascending aorta size is mildly dilated. Measures 4cm. Left Ventricle Left ventricular chamber dimension is normal. Left ventricular systolic function is normal, estimated at 60-65. There is mildly increased left ventricular wall thickness. Left ventricular septal wall motion is normal. The left ventricular diastolic function is grade II diastolic dysfunction. Right Ventricle Right ventricular chamber dimension is normal. Right ventricular systolic function is normal. Left Atria Left atrial chamber dimension is normal. Right Atria Right atrial chamber dimension is normal. Aortic Valve The aortic valve is trileaflet. There is mild aortic valve sclerosis. There is no aortic valve stenosis. There is no aortic valve regurgitation. Pulmonic Valve The pulmonic valve is normal. There is no pulmonic valve stenosis. There is mild pulmonic regurgitation. Mitral Valve The mitral valve has normal leaflets. There is no mitral valve stenosis. There is no mitral valve regurgitation. Tricuspid Valve The tricuspid valve leaflets are normal. There is no significant tricuspid valve stenosis. There is mild tricuspid valve regurgitation. Mild pulmonary hypertension, estimated pulmonary arterial systolic pressure is 35 mmHg. Pericardium/Pleural The pericardium appears normal. There is no pericardial effusion. Inferior Vena Cava Normal inferior vena cava with >50% collapse upon inspiration consistent with normal right atrial pressure, 5 mmHg. Aorta The aortic root size at the sinus of Valsalva is normal. The prox ascending aorta size is mildly dilated. Measures 4cm. Left Ventricular Outflow Tract Name Value Normal LVOT 2D LVOT Diameter 1.9 cm LVOT Doppler LVOT Peak Velocity 142 cm/s LVOT Peak Gradient 8 mmHg LVOT Mean Gradient 4 mmHg LVOT VTI 24 cm LVOT VTI/AV VTI Ratio 0.8 LVOT Stroke Volume 72 ml LVOT CO 4.7 l/min LVOT CI 2.1 l/min/m2 Pulmonic Valve Name Value Normal PV Doppler PV Peak Velocity 102 cm/s PV Peak Gradient 4 mmHg PV Regurgitation Doppler AR Peak End Diastolic Velocity 68 cm/s Mitral Valve Name Value Normal MV Diastolic Function MV E Peak Velocity 82 cm/s MV A Peak Velocity 46 cm/s MV E/A 1.8 MV Decel Time (PW) 194 ms MV Annular TDI MV E/e' (Septal) 13.6 MV E/e' (Lateral) 9.9 MV E/e' (Average) 11.7 Tricuspid Valve Name Value Normal TV Regurgitation Doppler TR Peak Velocity 274 cm/s TR Peak Gradient 23 mmHg Estimated PAP/RSVP RA Pressure 5 mmHg <=5 PA Systolic Pressure 35 mmHg <36 RV Systolic Pressure 35 mmHg <36 TV Annular TDI TV Lateral Tabitha s' Velocity 9.0 cm/s >=9.5 Aortic Valve Name Value Normal AV Doppler AV Peak Velocity 172 cm/s AV Peak Gradient 12 mmHg AV Mean Gradient 6 mmHg AV VTI 31 cm AV Area (Cont Eq VTI) 2.3 cm2 >=3.0 AV Area (Cont Eq Buddy) 2.4 cm2 AV DI (Buddy) 0.83 AV Regurgitation 2D LVOT Area 2.9 cm2 Ventricles Name Value Normal LV Dimensions 2D/MM IVS Diastolic Thickness (2D) 1.3 cm 0.6-1.0 LVID Diastole (2D) 4.4 cm 4.2-5.8 LVIW Diastolic Thickness (2D) 1.4 cm 0.6-1.0 LVID Systole (2D) 2.7 cm 2.5-4.0 LVOT Diameter 1.9 cm LV Mass (2D Cubed) 220.17 g 88.00-224.00 LV Mass Index (2D Cubed) 97 g/m2 49-115 Relative Wall Thickness (2D) 0.63 <=0.42 LV Fractional Shortening/Ejection Fraction 2D/MM LV Fractional Shortening (2D) 38 % 25-43 LV EF (2D Teichholz) 68 % LV Diastolic Volume (4C MOD) 72 ml LV EF (4C MOD) 61 % LV Diastolic Volume (2C MOD) 85 ml LV EF (2C MOD) 57 % LV Diastolic Volume (BP MOD) 80 ml 62-150 LV Diastolic Volume Index (BP MOD) 35 ml/m2 34-74 LV Systolic Volume (BP MOD) 33 ml 21-61 LV Systolic Volume Index (BP MOD) 15 ml/m2 11-31 LV EF (BP MOD) 58 % 52-72 LV Diastolic Length (4C) 8.2 cm LV Systolic Length (4C) 7.1 cm LV Stroke Volume (4C MOD) 44 ml Atria Name Value Normal LA Dimensions LA Volume (4C A-L) 53 ml LA Volume (BP A-L) 58 ml RA Dimensions RA Systolic Major [place] Length (4C) 4.4 cm 2.1-2.7 RA Area (4C) 14.3 cm2 <=18.0 Report Signatures
[2024-12-01] MEDS: INSULIN ASPART (*BKC) 100 UNITS/ML SUB-Q (00:32)
[2024-12-01 04:13] LABS: Hematocrit 42.8 % (42.0-52.0); Hemoglobin 14.4 g/dL (14.0-18.0); Mean Corpuscular HGB Conc 33.6 g/dl (32-36); Mean Corpuscular Hemoglobin 30.7 pg (26-34); Mean Corpuscular Volume 91.3 fl (80-100); Platelet Count Result 146 k/mm3 (150-375); Red Blood Count 4.69 M/mm3 (4.6-6.20); White Blood Count 6.0 K/mm3 (4.5-10.0)
[2024-12-01 04:23] LABS: Alanine Aminotransferase 20 U/L (6-50); Albumin Level 3.9 g/dL (3.5-5.1); Alkaline Phosphatase 60 U/L (38-126); Anion Gap 7 mmol/L (4-12); Aspartate Amino Transferase 23 U/L (17-59); Bilirubin,Total 0.5 mg/dL (0.2-1.3); Blood Urea Nitrogen 13 mg/dL (9-20); Calcium 8.9 mg/dL (8.4-10.2); Carbon Dioxide 27 mmol/L (22-30); Chloride 104 mmol/L (98-107); Estimated CRCL calculation 82 ml/min; Estimated Glomerular Filt Rate > 60; Glucose 132 mg/dL (65-110); Magnesium 1.8 mg/dL (1.6-2.3); Potassium 3.7 mmol/L (3.4-5.0); Sodium 138 mmol/L (137-145); Total Protein 7.5 g/dL (6.3-8.2)
[2024-12-01] MEDS: ASPIRIN 81 MG ENTERIC TABLET PO (08:13)
[2024-12-01] MEDS: MAGNESIUM OXIDE 200 MG TABLET PO (08:13)
[2024-12-01] MEDS: LOSARTAN POTASSIUM 100 MG TABLET PO (08:13)
[2024-12-01] MEDS: ENOXAPARIN 40 MG/0.4 ML SYRINGE SUB-Q (08:13)
--- NOTE | 2024-12-01 17:48 | PM.IMPN ---
Progress Note: A&P Assessment and Plan (1) Anginal equivalent: Code(s): I20.89 - Other forms of angina pectoris Status: Acute (2) ST segment changes on electrocardiogram: Code(s): R94.31 - Abnormal electrocardiogram [ECG] [EKG] Status: Acute (3) Pain in right paraspinal region: Code(s): M54.9 - Dorsalgia, unspecified Status: Acute (4) Hypertension: Qualifiers: Hypertension type: primary hypertension Qualified Code(s): I10 - Essential (primary) hypertension Code(s): I10 - Essential (primary) hypertension Status: Acute (5) Type 2 diabetes mellitus: Qualifiers: Diabetes mellitus termite renewal inspector insulin use: without long-term use Diabetes mellitus complication status: without complication Qualified Code(s): E11.9 - Type 2 diabetes mellitus without complications Code(s): E11.9 - Type 2 diabetes mellitus without complications Status: Acute (6) Obstructive sleep apnea: Code(s): G47.33 - Obstructive sleep apnea (adult) (pediatric) Status: Acute Plan The patient is having thoracic back pain and initial troponin was less than 0.012 but patient had a delta troponin elevation but was still negative. Unfortunately patient's EKG demonstrated changes in V2 V3 that correlated with patient's increased pain. The patient also was noted to be hypertensive with systolic blood pressures as high as 182/111. ER provider discussed the patient's case with cardiology who recommended patient be started on heparin drip per and nitroglycerin drip. Subsequently patient been admitted to the ICU with quilt sewer consult. Will titrate nitro drip for blood pressure affect and pain relief. Mole check fasting lipid panel in a.m.. Will administer full-dose aspirin therapy and will start patient on 81 mg aspirin daily. Await further recommendations from Cardiology. Will resume home losartan. Patient does have type 2 diabetes mellitus and is mildly hyperglycemic glucoses of 204. He does not check his glucoses at home. Home metformin is on hold. Will place patient on moderate dose sliding scale insulin with Accu-Cheks q.6 hours while NPO. Hypoglycemia protocol be ordered as needed. Patient's reports that the patient has obstructive sleep apnea but is awaiting a new mask at home because the nasal mask has not been working for him. He is awaiting a full face mask. Will order auto titrating CPAP/BiPAP while hospitalized. 58 y/o male with history of htn, presented with severe sudden onset of upper back pain, patient stats pain was so severe he was not able tolerate and came to the ER, upon arrival to the ER with upper back pain, patient BP was significantly elevated and there were some acute changes on his EKG, the residency director review patient EKG and recommended to start patient on heparin and nitroglycerine, patient was admitted to the ICU. however the residency director does not suspect ACS, back pain is reproducible, patient back pain is persisting, to further evaluate patient had Ct scan of thoracic spine and it showed disc protrusion, will consult spine surgeon for further recommendation, will be seen by the residency director and further recommendation to follow. MEDICAL DECISION MAKING NARRATIVE -Spoke with the ED provider in detail regarding patient's evaluation, workup and management -Patient seen and examined at bedside -Collaborated with patient's nurse at the bedside in detail and addressed all concerns -Labs, electrolytes, radiology, investigations and test results reviewed -ED/Consult/Nursing/Ancilliary notes on the chart reviewed and appreciated -Spoke with patient/family at the bedside and all questions answered. Subjective Date/time seen: 12/01/24 17:48 Interval history: Mid back pain Narrative: 58-year-old male with a past medical history of essential hypertension, type 2 diabetes mellitus on metformin, erectile dysfunction and obstructive sleep apnea who presented to the ER with midthoracic back pain that started yesterday. The patient reports that he was at 6 flags yesterday. Around 10:00 he started having pain in his right thoracic region. On palpation of the area patient does have reproducible pain. He reports pain is worse with deep breathing and sudden movements. He denies any cough her recent lifting or pulling beyond what he would usually do. He reports shortness of breath only because the pain is worse with deep breathing. He denies any dyspnea on exertion. He has not had any cough or congestion, fevers or chills. His reports that the patient has been told in the past he has a ?enlarged heart?. In patient had a stress test greater than 5 years ago that was negative. The stress test was performed in [place]. He has had a history of irregular heartbeats and is EKG in the ER did demonstrate sinus arrhythmia and PVCs. He denies any history of AFib. He has not had any lower extremity swelling orthopnea or paroxysmal nocturnal dyspnea. He does not have a family history of heart disease. He was initially treated in the ER with [place], lidocaine patch, muscle relaxers and Protonix. Despite these measures the patient was still having pain that he reports was a 11/10 in intensity. His repeat troponin went from 0.01 to up to 0.027. With his repeat EKG demonstrated new ST T-wave changes in V2 V3 and inversions in V4 5 and 6. The ER provider discussed patient's case with the automatic profile sander operator who did not see evidence of STEMI and subsequently the non automatic profile sander operator recommended that the patient be started on heparin and nitroglycerin. The patient reports that after he was started on the nitroglycerin his pain decreased significantly down to 6/10 in intensity where he had had no improvement previous. He is 6 hour EKG demonstrated persistent changes in lateral eat and repeat troponin is pending on the time of patient's arrival to the ICU. 58 y/o male with history of htn, presented with severe sudden onset of upper back pain, patient stats pain was so severe he was not able tolerate and came to the ER, upon arrival to the ER with upper back pain, patient BP was significantly elevated and there were some acute changes on his EKG, the residency director review patient EKG and recommended to start patient on heparin and nitroglycerine, patient was admitted to the ICU. however the residency director does not suspect ACS, back pain is reproducible, patient back pain is persisting, to further evaluate patient had Ct scan of thoracic spine and it showed disc protrusion, will consult spine surgeon for further recommendation, will be seen by the residency director and further recommendation to follow. Review of Systems Review of Systems: 12 systems were reviewed with pertinent positives and negatives per HPI. Except as documented in the HPI, all other systems were reviewed and are negative. His reports that the patient has had increased urinary urgency and he reports he has been having weak urinary stream with hesitancy. All systems reviewed & are unremarkable except as noted in HPI and below (HPI) Exam Narrative: Patient is comfortable, NAD HEENT: eyes are clear and none icteric LUNGS:CTA HEART: RR S1S2 ABD: BS+, Soft and nontender Lower extremities: no edema SKIN: nonjaundiced Neuro: grossly intact. Objective Data Vital Signs Vital Signs: Vital Signs - 24 hr 11/30/24 18:00 11/30/24 19:57 11/30/24 20:00 Temperature 37.0 C Pulse Rate 72 72 70 Respiratory Rate 22 H Blood Pressure 151/88 H Pulse Oximetry 99 Oxygen Delivery 11/30/24 22:00 12/01/24 00:00 12/01/24 00:00 Temperature 36.9 C Pulse Rate 72 77 Respiratory Rate 22 H Blood Pressure 150/88 H Pulse Oximetry 98 Oxygen Delivery Room Air 12/01/24 00:00 12/01/24 02:00 12/01/24 03:54 Temperature 36.8 C Pulse Rate 73 64 78 Respiratory Rate 22 H Blood Pressure 159/96 H Pulse Oximetry 100 Oxygen Delivery 12/01/24 04:00 12/01/24 04:00 12/01/24 06:00 Temperature Pulse Rate 71 74 Respiratory Rate Blood Pressure Pulse Oximetry Oxygen Delivery Room Air 12/01/24 07:58 12/01/24 08:00 12/01/24 08:00 Temperature 36.9 C Pulse Rate 71 79 79 Respiratory Rate 20 20 Blood Pressure 153/100 H Pulse Oximetry 98 98 Oxygen Delivery Room Air 12/01/24 10:00 12/01/24 12:00 12/01/24 12:00 Temperature Pulse Rate 63 67 73 Respiratory Rate 20 Blood Pressure Pulse Oximetry 100 Oxygen Delivery Room Air 12/01/24 12:31 12/01/24 16:35 Temperature 36.8 C 36.8 C Pulse Rate 67 81 Respiratory Rate 20 20 Blood Pressure 173/93 H 159/97 H Pulse Oximetry 100 97 Oxygen Delivery Intake/Output Intake/Output: Intake & Output 11/28/24 11/29/24 11/30/24 12/01/24 23:59 23:59 23:59 23:59 Intake Total 15.4 1808.7 590 Output Total 550 Balance 15.4 1258.7 590 Meds/Results Medications: Active Medications Generic Name Dose Route Start Last Admin Trade Name Freq PRN Reason Stop Dose Admin Acetaminophen 650 mg 11/29/24 20:52 Acetaminophen 325 Mg Tablet PO Q4H PRN Mild Pain (1-3) or Fever Hydrocodone Bitart/Acetaminophen 1 tab 11/30/24 08:39 11/30/24 17:56 Hydrocodone/Acetaminophen (*Crx) 5-325 Mg Tablet PO 1 tab Q4H PRN Administration Pain Rated 4-6 Amlodipine Besylate 10 mg 12/01/24 09:00 12/01/24 13:07 Amlodipine Besylate 10 Mg Tablet PO 10 mg DAILY YAMILE Administration Aspirin 81 mg 11/30/24 09:00 12/01/24 08:13 Aspirin 81 Mg Enteric Tablet PO 81 mg QAM YAMILE Administration Dextrose 12.5 gm 11/30/24 08:38 Dextrose 50% 25 Gm/50 Ml Syringe IV PUSH PRN PRN Hypoglycemia Protocol Enoxaparin Sodium 40 mg 11/30/24 14:00 12/01/24 08:13 Enoxaparin 40 Mg/0.4 Ml Syringe SUB-Q 40 mg DAILY YAMILE Administration Glucagon 1 mg 11/30/24 08:38 Glucagon For Inj 1 Mg Vial IM PRN PRN Hypoglycemia Protocol Glucose 15 gm 11/30/24 08:38 Glucose Oral Gel 15 Gm Of Glucse In 37.5 Gm Tube PO PRN PRN Hypoglycemia Protocol Hydralazine HCl 20 mg 11/30/24 08:46 Hydralazine Hcl 20 Mg/Ml Vial IV PUSH Q4H PRN SBP more than 160 Dextrose 1,000 mls @ 100 mls/hr 11/30/24 08:38 Dextrose 5% 1,000 Ml IVPB PRN PRN Hypoglycemia Protocol Ibuprofen 400 mg 11/30/24 08:39 Ibuprofen 400 Mg Tablet PO Q4H PRN Pain Rated 1-3 Insulin Aspart 3 - 6 units 11/30/24 12:00 12/01/24 13:05 Insulin Aspart (*Bkc) 100 Units/Ml SUB-Q Not Given Q6HR [facility] Protocol Losartan Potassium 100 mg 11/30/24 09:00 12/01/24 08:13 Losartan Potassium 100 Mg Tablet PO 100 mg DAILY YAMILE Administration Magnesium Oxide 200 mg 11/30/24 09:00 12/01/24 08:13 Magnesium Oxide 200 Mg Tablet PO 200 mg DAILY YAMILE Administration Morphine Sulfate 2 mg 11/30/24 08:39 Morphine Sulfate (*Crx) 2 Mg/Ml Inj IV PUSH Q2H PRN Pain Rated 7-10 Ondansetron HCl 4 mg 11/29/24 20:52 Ondansetron Inj 4 Mg/2 Ml Vial IV PUSH Q4H PRN Nausea Perflutren Lipid Microsphere 0 ml 11/30/24 08:40 Perflutren Lipid Microspheres 1.5 Ml Vial Diluted To 10 Ml Total Volume IV PUSH 12/03/24 08:40 ONCE PRN adequate visualization Protocol Radiology Results: ITS Impressions Chest X-Ray 11/29/24 15:56 IMPRESSION: No acute cardiopulmonary process. Acute versus chronic mild height loss at T8-T10. Chest CTA 11/29/24 18:41 IMPRESSION: No CT evidence of acute pulmonary embolus. No acute process detected in the chest. Thoracic Spine CT 12/01/24 15:59 Impression: Central disc protrusion at the level of C7/T1, narrowing the spinal canal. Diffuse idiopathic skeletal hyperostosis at the levels of T5-T9. Mild anterior wedge compression of the T5-T9 vertebral bodies (grade 1) which may be seen with osteoporosis. Large right renal cyst anterior to the level of T10/T11. Right-sided pleural thickening with adjacent compressive atelectasis within the right lung base, an interval change from previous examination performed 11/29/2024 Labs Labs: Laboratory Results - last 24 hr 12/01/24 12/01/24 12/01/24 00:21 04:01 11:21 WBC 6.0 RBC 4.69 Hgb 14.4 Hct 42.8 MCV 91.3 MCH 30.7 MCHC 33.6 RDW 12.9 Plt Count 146 L MPV 11.6 H Sodium 138 Potassium 3.7 Chloride 104 Carbon Dioxide 27 Anion Gap 7 BUN 13 Creatinine 1.08 Estim Creat Clear Calc 82 Estimated GFR > 60 Glucose 132 H POC Capillary Glucose 202 H 135 H Calcium 8.9 Magnesium 1.8 Total Bilirubin 0.5 AST 23 ALT 20 Alkaline Phosphatase 60 Total Protein 7.5 Albumin 3.9 12/01/24 16:23 WBC RBC Hgb Hct MCV MCH MCHC RDW Plt Count MPV Sodium Potassium Chloride Carbon Dioxide Anion Gap BUN Creatinine Estim Creat Clear Calc Estimated GFR Glucose POC Capillary Glucose 135 H Calcium Magnesium Total Bilirubin AST ALT Alkaline Phosphatase Total Protein Albumin Quality VTE Prophylaxis VTE prophylaxis: pharmacologic ordered
[2024-12-01] MEDS: HYDROcodone/acetaminophen (*CRX) 5-325 MG TABLET 1 TAB PO (20:15)
[2024-12-02] VITALS: PULSE 75
[2024-12-02 02:00] VITALS: PULSE 69
[2024-12-02 04:00] VITALS: BP 160/83; PULSE 68; PULSE 75; RESP 17; TEMP 36.9; O2SAT 92
[2024-12-02 04:47] LABS: Hematocrit 45.3 % (42.0-52.0); Hemoglobin 15.0 g/dL (14.0-18.0); Mean Corpuscular HGB Conc 33.1 g/dl (32-36); Mean Corpuscular Hemoglobin 30.4 pg (26-34); Mean Corpuscular Volume 91.9 fl (80-100); Platelet Count Result 164 k/mm3 (150-375); Red Blood Count 4.93 M/mm3 (4.6-6.20); White Blood Count 5.4 K/mm3 (4.5-10.0)
[2024-12-02 05:01] LABS: Alanine Aminotransferase 19 U/L (6-50); Albumin Level 4.2 g/dL (3.5-5.1); Alkaline Phosphatase 64 U/L (38-126); Anion Gap 9 mmol/L (4-12); Aspartate Amino Transferase 24 U/L (17-59); Bilirubin,Total 0.8 mg/dL (0.2-1.3); Blood Urea Nitrogen 13 mg/dL (9-20); Calcium 9.4 mg/dL (8.4-10.2); Carbon Dioxide 26 mmol/L (22-30); Chloride 102 mmol/L (98-107); Estimated CRCL calculation 86 ml/min; Estimated Glomerular Filt Rate > 60; Glucose 156 mg/dL (65-110); Magnesium 1.9 mg/dL (1.6-2.3); Potassium 3.7 mmol/L (3.4-5.0); Sodium 137 mmol/L (137-145); Total Protein 8.1 g/dL (6.3-8.2)
[2024-12-02 06:00] VITALS: PULSE 92
[2024-12-02 07:51] VITALS: BP 150/92; PULSE 71; RESP 14; TEMP 36.4; O2SAT 97
[2024-12-02 08:00] VITALS: PULSE 71; PULSE 76; RESP 14; O2SAT 97
[2024-12-02] MEDS: ASPIRIN 81 MG ENTERIC TABLET PO (08:34)
[2024-12-02] MEDS: LOSARTAN POTASSIUM 100 MG TABLET PO (08:34)
[2024-12-02] MEDS: ENOXAPARIN 40 MG/0.4 ML SYRINGE SUB-Q (08:34)
[2024-12-02] MEDS: MAGNESIUM OXIDE 200 MG TABLET PO (08:34)
--- NOTE | 2024-12-02 09:45 | PM.PNCARD ---
Progress Note: A&P Assessment and Plan (1) Hypertensive urgency: Code(s): I16.0 - Hypertensive urgency Status: Acute (2) ST segment changes on electrocardiogram: Code(s): R94.31 - Abnormal electrocardiogram [ECG] [EKG] Status: Acute Plan Hypertensive urgency-blood pressure still not controlled Abnormal EKG-changes suggestive of LVH; troponin negative; no chest pain; TTE shows mild LVH and grade 2 diastolic dysfunction Plan: -target blood pressure less than 120/80 mm Hg -continue amlodipine 10 mg daily -continue losartan 100 mg daily (home medication) -blood pressure not well controlled with the above to antihypertensive medications. Add hydrochlorothiazide 25 mg daily -check and replace electrolytes to keep potassium greater than 4 and magnesium greater than 2 -consider workup for secondary causes of hypertension with renal ultrasound, renin to aldosterone ratio, and 24 hour urine metanephrines. This can be done as an outpatient -outpatient stress test -okay to discharge home from cardiac standpoint. Recommend follow-up with Outpatient Cardiology in 4 weeks post discharge Subjective Date/time seen: 12/02/24 09:45 Interval history: Reason for encounter: Hypertensive urgency, abnormal EKG Interval history: Patient denies chest pain, shortness of breath, dizziness, palpitations, fevers, chills, abdominal pain, nausea. His blood pressures are still high with SBP in the 150s to 170s rates. Review of Systems Cardiovascular: Comments: As mentioned in the HPI Respiratory: Comments: As mentioned in the HPI Exam Narrative: General: Alert oriented x3, no acute distress Neck: Supple, no JVD Chest: Bilaterally clear to auscultation, no rales or rhonchi Cardiac: S1, S2 +, regular rate, regular rhythm, no murmurs or rubs Extremities: No pedal 80, no skin rash Neurologic: Alert and oriented x3, no focal neurological deficits Objective Data Vital Signs Vital Signs: Vital Signs - 24 hr 12/01/24 10:00 12/01/24 12:00 12/01/24 12:00 Temperature Pulse Rate 63 67 73 Respiratory Rate 20 Blood Pressure Pulse Oximetry 100 Oxygen Delivery Room Air Fraction of Inspired Oxygen 12/01/24 12:31 12/01/24 14:00 12/01/24 16:00 Temperature 36.8 C Pulse Rate 67 95 82 Respiratory Rate 20 Blood Pressure 173/93 H Pulse Oximetry 100 Oxygen Delivery Fraction of Inspired Oxygen 12/01/24 16:00 12/01/24 16:35 12/01/24 18:00 Temperature 36.8 C Pulse Rate 81 81 85 Respiratory Rate 20 20 Blood Pressure 159/97 H Pulse Oximetry 97 97 Oxygen Delivery Room Air Fraction of Inspired Oxygen 12/01/24 20:00 12/01/24 20:00 12/01/24 20:00 Temperature 36.8 C Pulse Rate 82 83 Respiratory Rate 17 Blood Pressure 150/87 H Pulse Oximetry 98 Oxygen Delivery Room Air Fraction of Inspired Oxygen 12/01/24 22:00 12/01/24 23:09 12/01/24 23:24 Temperature 37.0 C Pulse Rate 74 72 Respiratory Rate 17 Blood Pressure 159/62 H Pulse Oximetry 98 99 Oxygen Delivery Room Air Fraction of Inspired Oxygen 21 12/02/24 00:00 12/02/24 00:00 12/02/24 02:00 Temperature Pulse Rate 75 69 Respiratory Rate Blood Pressure Pulse Oximetry Oxygen Delivery Room Air Fraction of Inspired Oxygen 12/02/24 04:00 12/02/24 04:00 12/02/24 04:00 Temperature 36.9 C Pulse Rate 75 68 Respiratory Rate 17 Blood Pressure 160/83 H Pulse Oximetry 92 Oxygen Delivery Room Air Fraction of Inspired Oxygen 12/02/24 06:00 12/02/24 07:51 Temperature 36.4 C Pulse Rate 92 71 Respiratory Rate 14 Blood Pressure 150/92 H Pulse Oximetry 97 Oxygen Delivery Fraction of Inspired Oxygen Intake/Output Intake/Output: Intake & Output 11/29/24 11/30/24 12/01/24 12/02/24 23:59 23:59 23:59 23:59 Intake Total 15.4 1808.7 830 354 Output Total 550 Balance 15.4 1258.7 830 354 Meds/Results Medications: Active Medications Generic Name Dose Route Start Last Admin Trade Name Freq PRN Reason Stop Dose Admin Acetaminophen 650 mg 11/29/24 20:52 Acetaminophen 325 Mg Tablet PO Q4H PRN Mild Pain (1-3) or Fever Hydrocodone Bitart/Acetaminophen 1 tab 11/30/24 08:39 12/01/24 20:15 Hydrocodone/Acetaminophen (*Crx) 5-325 Mg Tablet PO 1 tab Q4H PRN Administration Pain Rated 4-6 Amlodipine Besylate 10 mg 12/01/24 09:00 12/02/24 08:34 Amlodipine Besylate 10 Mg Tablet PO 10 mg DAILY YAMILE Administration Aspirin 81 mg 11/30/24 09:00 12/02/24 08:34 Aspirin 81 Mg Enteric Tablet PO 81 mg QAM YAMILE Administration Dextrose 12.5 gm 11/30/24 08:38 Dextrose 50% 25 Gm/50 Ml Syringe IV PUSH PRN PRN Hypoglycemia Protocol Enoxaparin Sodium 40 mg 11/30/24 14:00 12/02/24 08:34 Enoxaparin 40 Mg/0.4 Ml Syringe SUB-Q 40 mg DAILY YAMILE Administration Glucagon 1 mg 11/30/24 08:38 Glucagon For Inj 1 Mg Vial IM PRN PRN Hypoglycemia Protocol Glucose 15 gm 11/30/24 08:38 Glucose Oral Gel 15 Gm Of Glucse In 37.5 Gm Tube PO PRN PRN Hypoglycemia Protocol Hydralazine HCl 20 mg 11/30/24 08:46 Hydralazine Hcl 20 Mg/Ml Vial IV PUSH Q4H PRN SBP more than 160 Dextrose 1,000 mls @ 100 mls/hr 11/30/24 08:38 Dextrose 5% 1,000 Ml IVPB PRN PRN Hypoglycemia Protocol Ibuprofen 400 mg 11/30/24 08:39 Ibuprofen 400 Mg Tablet PO Q4H PRN Pain Rated 1-3 Insulin Aspart 3 - 6 units 12/01/24 21:00 12/02/24 08:35 Insulin Aspart (*Bkc) 100 Units/Ml SUB-Q Not Given 0800,1200,1700,2100 [facility] Protocol Losartan Potassium 100 mg 11/30/24 09:00 12/02/24 08:34 Losartan Potassium 100 Mg Tablet PO 100 mg DAILY YAMILE Administration Magnesium Oxide 200 mg 11/30/24 09:00 12/02/24 08:34 Magnesium Oxide 200 Mg Tablet PO 200 mg DAILY YAMILE Administration Morphine Sulfate 2 mg 11/30/24 08:39 Morphine Sulfate (*Crx) 2 Mg/Ml Inj IV PUSH Q2H PRN Pain Rated 7-10 Ondansetron HCl 4 mg 11/29/24 20:52 Ondansetron Inj 4 Mg/2 Ml Vial IV PUSH Q4H PRN Nausea Perflutren Lipid Microsphere 0 ml 11/30/24 08:40 Perflutren Lipid Microspheres 1.5 Ml Vial Diluted To 10 Ml Total Volume IV PUSH 12/03/24 08:40 ONCE PRN adequate visualization Protocol Radiology Results: ITS Impressions Chest X-Ray 11/29/24 15:56 IMPRESSION: No acute cardiopulmonary process. Acute versus chronic mild height loss at T8-T10. Chest CTA 11/29/24 18:41 IMPRESSION: No CT evidence of acute pulmonary embolus. No acute process detected in the chest. Thoracic Spine CT 12/01/24 15:59 Impression: Central disc protrusion at the level of C7/T1, narrowing the spinal canal. Diffuse idiopathic skeletal hyperostosis at the levels of T5-T9. Mild anterior wedge compression of the T5-T9 vertebral bodies (grade 1) which may be seen with osteoporosis. Large right renal cyst anterior to the level of T10/T11. Right-sided pleural thickening with adjacent compressive atelectasis within the right lung base, an interval change from previous examination performed 11/29/2024 Labs Labs: Laboratory Results - last 24 hr 12/01/24 12/01/24 12/01/24 11:21 16:23 21:47 WBC RBC Hgb Hct MCV MCH MCHC RDW Plt Count MPV Sodium Potassium Chloride Carbon Dioxide Anion Gap BUN Creatinine Estim Creat Clear Calc Estimated GFR Glucose POC Capillary Glucose 135 H 135 H 197 H Calcium Magnesium Total Bilirubin AST ALT Alkaline Phosphatase Total Protein Albumin 12/02/24 12/02/24 04:02 07:22 WBC 5.4 RBC 4.93 Hgb 15.0 Hct 45.3 MCV 91.9 MCH 30.4 MCHC 33.1 RDW 13.1 Plt Count 164 MPV 11.8 H Sodium 137 Potassium 3.7 Chloride 102 Carbon Dioxide 26 Anion Gap 9 BUN 13 Creatinine 1.03 Estim Creat Clear Calc 86 Estimated GFR > 60 Glucose 156 H POC Capillary Glucose 151 H Calcium 9.4 Magnesium 1.9 Total Bilirubin 0.8 AST 24 ALT 19 Alkaline Phosphatase 64 Total Protein 8.1 Albumin 4.2 Imaging My impression: TTE: Increased left ventricular wall thickness, grade 2 diastolic dysfunction,normal LVEF of 60-65%. No significant valvular pathology. Mildly dilated proximal ascending aorta of 4 cm.
--- NOTE | 2024-12-02 12:53 | PM.DS ---
DS: Admitting Diagnosis Discharge Date 12/02/24 Admitting Diagnosis Mid back pain DS: Discharge Diagnosis Discharge Diagnosis (1) Anginal equivalent: Code(s): I20.89 - Other forms of angina pectoris Status: Acute (2) ST segment changes on electrocardiogram: Code(s): R94.31 - Abnormal electrocardiogram [ECG] [EKG] Status: Acute (3) Pain in right paraspinal region: Code(s): M54.9 - Dorsalgia, unspecified Status: Acute (4) Hypertension: Qualifiers: Hypertension type: primary hypertension Qualified Code(s): I10 - Essential (primary) hypertension Code(s): I10 - Essential (primary) hypertension Status: Acute (5) Type 2 diabetes mellitus: Qualifiers: Diabetes mellitus keno terminal operator insulin use: without fdc use Diabetes mellitus complication status: without complication Qualified Code(s): E11.9 - Type 2 diabetes mellitus without complications Code(s): E11.9 - Type 2 diabetes mellitus without complications Status: Acute (6) Obstructive sleep apnea: Code(s): G47.33 - Obstructive sleep apnea (adult) (pediatric) Status: Acute Plan The patient is having thoracic back pain and initial troponin was less than 0.012 but patient had a delta troponin elevation but was still negative. Unfortunately patient's EKG demonstrated changes in V2 V3 that correlated with patient's increased pain. The patient also was noted to be hypertensive with systolic blood pressures as high as 182/111. ER provider discussed the patient's case with cardiology who recommended patient be started on heparin drip per and nitroglycerin drip. Subsequently patient been admitted to the ICU with supervisor screen printing consult. Will titrate nitro drip for blood pressure affect and pain relief. Mole check fasting lipid panel in a.m.. Will administer full-dose aspirin therapy and will start patient on 81 mg aspirin daily. Await further recommendations from Cardiology. Will resume home losartan. Patient does have type 2 diabetes mellitus and is mildly hyperglycemic glucoses of 204. He does not check his glucoses at home. Home metformin is on hold. Will place patient on moderate dose sliding scale insulin with Accu-Cheks q.6 hours while NPO. Hypoglycemia protocol be ordered as needed. Patient's reports that the patient has obstructive sleep apnea but is awaiting a new mask at home because the nasal mask has not been working for him. He is awaiting a full face mask. Will order auto titrating CPAP/BiPAP while hospitalized. 58 y/o male with history of htn, presented with severe sudden onset of upper back pain, patient stats pain was so severe he was not able tolerate and came to the ER, upon arrival to the ER with upper back pain, patient BP was significantly elevated and there were some acute changes on his EKG, the grinding and spraying supervisor review patient EKG and recommended to start patient on heparin and nitroglycerine, patient was admitted to the ICU. however the grinding and spraying supervisor does not suspect ACS, back pain is reproducible, patient back pain is persisting, to further evaluate patient had Ct scan of thoracic spine and it showed disc protrusion, will consult spine surgeon for further recommendation, will be seen by the grinding and spraying supervisor and further recommendation to follow. MEDICAL DECISION MAKING NARRATIVE -Spoke with the ED provider in detail regarding patient's evaluation, workup and management -Patient seen and examined at bedside -Collaborated with patient's nurse at the bedside in detail and addressed all concerns -Labs, electrolytes, radiology, investigations and test results reviewed -ED/Consult/Nursing/Ancilliary notes on the chart reviewed and appreciated -Spoke with patient/family at the bedside and all questions answered. DS: Summary Hospital Course Hospital Course: 58 y/o male with history of htn, presented with severe sudden onset of upper back pain, patient stats pain was so severe he was not able tolerate and came to the ER, upon arrival to the ER with upper back pain, patient BP was significantly elevated and there were some acute changes on his EKG, the grinding and spraying supervisor review patient EKG and recommended to start patient on heparin and nitroglycerine, patient was admitted to the ICU. however the grinding and spraying supervisor does not suspect ACS, back pain is reproducible, patient back pain is persisting, to further evaluate patient had Ct scan of thoracic spine and it showed disc protrusion, will consult spine surgeon for further recommendation, will be seen by the grinding and spraying supervisor and further recommendation to follow. patient clinical symptoms have improved, patient will follow up with neurosurgeon as a outpatient, and follow up with his primary care provider Time Spent with Patient Time attestation: Total time spent providing and/or coordinating discharge services: Exam Narrative: Patient is comfortable, NAD HEENT: eyes are clear and none icteric LUNGS:CTA HEART: RR S1S2 ABD: BS+, Soft and nontender Lower extremities: no edema SKIN: nonjaundiced Neuro: grossly intact. DS: Data Data Completed and Pending Labs on day of discharge: Labs from last 24 hours 12/02/24 12/02/24 12/01/24 07:22 04:02 21:47 WBC 5.4 RBC 4.93 Hgb 15.0 Hct 45.3 MCV 91.9 MCH 30.4 MCHC 33.1 RDW 13.1 Plt Count 164 MPV 11.8 H Sodium 137 Potassium 3.7 Chloride 102 Carbon Dioxide 26 Anion Gap 9 BUN 13 Creatinine 1.03 Estim Creat Clear Calc 86 Estimated GFR > 60 Glucose 156 H POC Capillary Glucose 151 H 197 H Calcium 9.4 Magnesium 1.9 Total Bilirubin 0.8 AST 24 ALT 19 Alkaline Phosphatase 64 Total Protein 8.1 Albumin 4.2 12/01/24 16:23 WBC RBC Hgb Hct MCV MCH MCHC RDW Plt Count MPV Sodium Potassium Chloride Carbon Dioxide Anion Gap BUN Creatinine Estim Creat Clear Calc Estimated GFR Glucose POC Capillary Glucose 135 H Calcium Magnesium Total Bilirubin AST ALT Alkaline Phosphatase Total Protein Albumin Discharge Plan Discharge Attending physician on discharge: Ashlee Urbina Consulting providers: Quentin Ortega; Ford Connelly; Kenyon Lamar; Yfn Eid; Anna Montoya; Bienvenido Romero; Essie Del Angel; Domingo Guardado Discharging Clinician: Bairon Keenan Patient Disposition: Home Activity: as tolerated Diet: heart healthy Discharge Instructions: Patient may return to work after seen by his neurosurgeon, patient to follow up with his primary care provider as soon as possible. patient is instructed if any symptoms redevelop to go to nearest ER. Patient Instructions: Antibiotic Form, Angina (DC) Patient Language: Maori Stand Alone Forms: General Discharge Information Follow-up/Referrals: Namrata,Theodore Arellano MD [Primary Care Provider] - Sumit White MD [Physician] - Discharge Medications: New lidocaine [Lidoderm] 5 % adhesive patch,medicated 1 patch topical DAILY Qty: 15 0RF Rx Instructions: leave on most painful area for up to 12 hrs cyclobenzaprine 10 mg tablet 10 mg PO TID PRN (Reason: muscle spasm) Qty: 21 0RF prednisone 20 mg tablet 40 mg PO DAILY 5 Days Qty: 10 0RF diclofenac potassium 50 mg tablet 50 mg PO TID PRN (Reason: pain) Qty: 30 0RF aspirin 81 mg Tablet,Delayed Release (Dr/Ec) 81 mg PO QAM Qty: 30 0RF amlodipine 10 mg Tablet 10 mg PO DAILY Qty: 30 0RF hydrochlorothiazide 25 mg Tablet 25 mg PO QAM Qty: 30 0RF Continued losartan 100 mg tablet 100 mg PO DAILY metformin 500 mg tablet 500 mg PO DAILY magnesium 200 mg tablet 200 mg PO DAILY naproxen sodium [Aleve] 220 mg capsule 440 mg PO DAILY tadalafil 5 mg tablet 5 mg PO DAILY Date of admission: 11/29/24 20:53 Primary Care Provider: Namrata,Theodore Arellano Admitting Provider: Ashlee Urbina Attending physician on admission: Bairon Keenan Condition: Stable Health Concerns: Patient may return to work after seen by his neuro surgeon.
--- NOTE | 2024-12-02 15:04 | PC.NURSE ---
Discharged home. Verbalized understanding related to discharge orders. Sent home with a radiology disc as requested by neurosurgery for follow-up appointment. No acute distress noted, family at the bedside with patient.
== END 2024-12-02 14:15 | disposition home or self-care (01) | DRG 305 ==
LOC: ANHED 18:47 → ANHICU 21:20 → ANHIMU 12-01 15:41 → ANHICU 12-03 11:57
PROVIDERS: Emergency Medicine; Internal Medicine; Student in an Organized Health Care Education/Training Program; Admitting Provider Internal Medicine; Emergency Provider Emergency Medicine; PCP Family Medicine; Visit Provider Family Medicine
DX: I16.0 Hypertensive urgency (principal); R07.89 Other chest pain; M54.9 Dorsalgia, unspecified; E11.65 Type 2 diabetes mellitus with hyperglycemia; N40.0 Benign prostatic hyperplasia without lower urinary tract symptoms; R94.31 Abnormal electrocardiogram [ECG] [EKG]; G47.33 Obstructive sleep apnea (adult) (pediatric); Z90.49 Acquired absence of other specified parts of digestive tract; Z79.84 Long term (current) use of oral hypoglycemic drugs; E66.9 Obesity, unspecified; Z68.31 Body mass index [BMI] 31.0-31.9, adult
CPT/HCPCS: 36415; 71046; 71275; 72128; 72156; 72157; 72158; 80048; 80053; 80061; 82948; 83036; 83735; 83880; 84484; 85025; 85027; 85055; 85610; 85730; 87641; 93005; 93306; 96365; 96366; 96375; 99285; A9270; A9577; J1644; J1650; J1815; J2305; J2470; J7120; Q9967